=== PATIENT | female | born 1930 | race Caucasian/White ===

== ENCOUNTER 2016-12-09 08:51 | Inpatient (IN) | payer MEDICARE, OTHER ==
[2016-12-09] MEDS ORDERED: ONDANSETRON ODT 4 MG TAB.RAPDIS ONE (09:14)
[2016-12-09 09:34] LABS: BASOPHILS 0.5 % (0.0-2.0); EOSINOPHILS 2.1 % (0.0-6.0); EOSINOPHILS# 0.2 X 10^3uL (0.0-0.4); HEMATOCRIT 37.3 % (36.0-48.0); HEMOGLOBIN 11.9 g/dL (12.0-16.0); LYMPHOCYTES 20.6 % (20.0-40.0); LYMPHOCYTES# 1.6 X 10^3uL (0.8-3.8); MEAN CELL VOLUME 93.9 fL (84.0-102.0); MEAN CORPUS. HGB CONCENTRATION 31.8 g/dL (32.0-36.0); MEAN CORPUSCULAR HEMOGLOBIN 29.9 pg (29.0-35.0); MEAN PLATELET VOLUME 7.8 fL (7.4-10.4); MONOCYTES 8.4 % (2.0-10.0); MONOCYTES# 0.7 X 10^3uL (0.2-1.0); NEUTROPHILS 68.4 % (54.0-75.0); NEUTROPHILS# 5.3 X 10^3uL (2.6-6.7); PLATELET COUNT 210 X 10^3uL (130-440); RED BLOOD COUNT 3.97 X 10^6uL (4.20-6.10); WHITE BLOOD COUNT 7.8 X 10^3uL (3.9-10.7)
[2016-12-09 09:45] LABS: BLOOD UREA NITROGEN 24 mg/dL (7-17); CALCIUM 9.7 mg/dL (8.4-10.2); CHLORIDE 104 mmol/L (98-107); GLUCOSE 111 mg/dL (70-100); POTASSIUM 4.1 mmol/L (3.5-5.1); SODIUM 144 mmol/L (137-145)
[2016-12-09 10:50] LABS: URINE MUCUS NONE SEEN (Up to 25%); URINE RBC NONE SEEN (0-5/hpf)
[2016-12-09] MEDS ORDERED: HOME MEDICATION LIST NEEDED 1 EA EACH MC ONE (11:13)
[2016-12-09] MEDS ORDERED: ACETAMINOPHEN 325 MG TABLET PO PRN ×2 (11:13→13:12)
[2016-12-09 11:15] LABS: URINE COLOR YELLOW
[2016-12-09 11:16] LABS: URINE APPEARANCE CLOUDY
[2016-12-09 11:19] LABS: URINE BACTERIA >50 ORGANISMS/hpf (<10/hpf); URINE BILIRUBIN NEGATIVE (NEGATIVE); URINE BLOOD TRACE (NEGATIVE); URINE GLUCOSE NORMAL (NEGATIVE); URINE KETONE NEGATIVE (NEGATIVE); URINE LEUKOCYTE ESTERASE 500 WBC/uL (3+) (NEGATIVE); URINE NITRITE POSITIVE (NEGATIVE); URINE PROTEIN 10mg/dL (trace) (NEG - TRACE); URINE SQUAMOUS EPITHELIAL CELL 0-5/hpf (<= 15/hpf); URINE UROBILINOGEN 1mg/dL (Normal) (NEG-1mg/dL)
[2016-12-09] MEDS ORDERED: CEFTRIAXONE SODIUM 1,000 MG/10 ML VIAL ONE (11:38)
[2016-12-09] MEDS ORDERED: NORMAL SALINE 100 ML IV ONE (11:38)
[2016-12-09] MEDS ORDERED: NORMAL SALINE 1,000 ML IV SCH ×2 (12:00→14:00)
--- NOTE | 2016-12-09 12:28 | ER NURSING DOCUMENTATION ---
Nurse's Notes [facility] Name:Hanna Cole Age:86 yrs Sex:Female :1930 Arrival Date:12/09/2016 Time:08:51 Bed4 Private MD:Anabella Moctezuma Diagnosis:Urinary Tract Infection (UTI);Dehydration;Fall;Difficulty Walking Presentation: 12/09 09:00 Care prior to arrival: IV initiated. st 09:02 Notified ED Physician of [facility] [place] notified. st 09:02 Acuity: HAMIDA 3 st 09:04 Presenting complaint: Patient states: pt fell while walking to the dining room with her st walker. it was an unwitnessed fall. pt is acting at her base line. pt did complain of right hip pain but was able to put weight on it per EMS. Pt has a hx of falls and dehydration. Transition of care: [facility]. 09:04 Method Of Arrival: EMS: 410 st Triage Assessment: 09:00 General: Appears in no apparent distress, Behavior is cooperative. Pain: Denies pain. st Unable to use pain scale. pt denies pain then states that her bottom is a little sore. EENT: Oral mucosa is dry. Neuro: Moves all extremities. pt is at her base line mentation per POA. Cardiovascular: Capillary refill < 3 seconds Heart tones present. Respiratory: No deficits noted. GI: Reports nausea. Injury Description: Skin tear to the right wrist. Historical: - Allergies: Sulfa (Sulfonamide Antibiotics); - Home Meds: 1. Omeprazole Oral 2. Sotalol Oral 3. Spironolactone Oral 4. Oxybutynin Chloride Oral 5. Bupropion Oral 6. Premarin Vagl 7. Fluoxetine Oral 8. Aspirin Oral 9. azelastine nasl - PMHx: constipation; OSTEOPOROSIS; HYPERTENSION; atrial fibrillation; - PSHx: mitrial valve replacment; - Tetanus: unable to assess. - Ebola Screening: : Patient denies exposure to infectious person. Patient denies travel to an Ebola-affected area in the 21 days before illness onset. . - Immunization history: Unable to Obtain. - Social history: Smoking status: unknown if patient ever smoked tobacco. Screenin:54 Infectious Disease Risk None. Abuse screen: no reasons for suspicions noted. st Nutritional screening: No deficits noted. Vital Signs: 09:00 BP 157 / 85; Pulse 67; Resp 16; Temp 98.8; Pulse Ox 94% on 2 lpm NC; Pain 0/10; st 10:10 BP 120 / 62; Pulse 48; st 10:55 BP 137 / 58; Pulse 67; Pulse Ox 98% on 2 lpm NC; st 09:[address] ED Course: 08:53 Patient arrived in ED. ama 08:53 Anabella Moctezuma MD is Private Physician. ama 09:01 Gricelda Garrett RN is Primary Nurse. st 09:[address] 09:10 Jose Ramirez MD is Attending Physician. 09:54 Valuables Remains with patient Patient has correct armband on for positive st identification. Bed in low position. Call light in reach. Side rails up X2. Pulse Ox - RN Monitoring Only NIBP On - RN Monitoring Only. 10:44 Assisted to bedside commode. st 10:45 Urine collected. Straight cath inserted Specimen obtained. st 11:09 Anabella Moctezuma MD is Admitting Physician. declan Administered Medications: 09:47 Drug: NS 0.9% 1000 ml; Route: IV; Rate: bolus; Site: left wrist; st 11:26 Follow up: IV Status: Completed infusion; IV Intake: 1000ml st 11:35 Drug: Rocephin 1 grams; Route: IVPB; Site: left wrist; st 12:10 Follow up: IV Status: Completed infusion; IV Intake: 100ml st Intake: 11:26 IV: 1000ml; Total: 1000ml. st 12:10 IV: 100ml; Total: 1100ml. st Outcome: 11: Decision to Admit by Provider. 12:29 Patient [address] the ED. st 12:29 Admitted to Med/surg accompanied by nurse, via stretcher. st 12:29 Condition: improved 12:29 Instructed on need to admit 12:29 Report given to Wanda ELIAS st Signatures: Gricelda Garrett RN RN st Meyer, John, MD MD jm Averdick, Andrew, Reg Reg ama
--- NOTE | 2016-12-09 12:28 | ER PHYSICIAN DOCUMENTATION ---
Physician Documentation [facility] Name:Hanna Cole Age:86 yrs Sex:Female :1930 Arrival Date:12/09/2016 Time:08:51 Bed4 Private MD:Anabella Moctezuma ED PhysicianMeJose kerns Disposition: 12/09/16 11:10 Admit ordered for Anabella Moctezuma. Preliminary diagnosis are Urinary Tract Infection (UTI), Dehydration, Fall, Difficulty Walking. - Bed requested for Medical/Surgical. - Condition is Fair. - Problem is new. - Symptoms are unchanged. 23 HR OBS Yes HPI: 12/09 10:52 This 86 yrs old Female presents to ER via EMS with complaints of Fall Injury. declan 10:52 Details of fall: The patient fell from an upright position, while walking. Onset: The jm symptom(s)/episode began/occurred just prior to arrival, this morning, today. Associated injuries: The patient sustained L hip- pt walking on it w assist. . Associated signs and symptoms: Pertinent positives: weakness, Loss of consciousness: the patient experienced no loss of consciousness. Severity of symptoms: in the emergency department the symptoms are unchanged. The patient has experienced similar episodes in the past. The patient has not recently seen a physician. 86 yo F who lives at [facility] here for falls. Pt feel a week ago and did not come in, but today EMS thought she was much more weak. Her friend agrees. Pt has minimal pain on the L hip, but otherwise admits only to feeling weak. . Historical: - Allergies: Sulfa (Sulfonamide Antibiotics); - Home Meds: 1. Omeprazole Oral 2. Sotalol Oral 3. Spironolactone Oral 4. Oxybutynin Chloride Oral 5. Bupropion Oral 6. Premarin Vagl 7. Fluoxetine Oral 8. Aspirin Oral 9. azelastine nasl - PMHx: constipation; OSTEOPOROSIS; HYPERTENSION; atrial fibrillation; - PSHx: mitrial valve replacment; - Tetanus: unable to assess. - Ebola Screening: : Patient denies exposure to infectious person. Patient denies travel to an Ebola-affected area in the 21 days before illness onset. . - Immunization history: Unable to Obtain. - Social history: Smoking status: unknown if patient ever smoked tobacco. ROS: 10:53 Constitutional: Positive for fatigue. jm 10:53 Eyes: Negative for blurry vision. 10:53 ENT: Negative for injury or acute deformity. 10:53 Cardiovascular: Negative for chest pain. 10:53 Respiratory: Negative for cough, shortness of breath. 10:53 Abdomen/GI: Negative for abdominal pain, nausea, vomiting, diarrhea. 10:53 : Negative for urinary symptoms, hematuria. 10:53 MS/extremity: Positive for contusion, Negative for swelling. 10:53 Skin: Negative for rash, swelling. 10:53 Neuro: Positive for gait disturbance. 10:53 All other systems are negative. Exam: 10:55 Constitutional: The patient appears alert, awake, frail. 10:55 Head/face: Exam is negative for obvious evidence of injury or deformity. 10:55 Eyes: Periorbital structures: appear normal. 10:55 ENT: Nose: is normal, Mouth: Oral mucosa: dry. 10:55 Cardiovascular: Rate: normal, Rhythm: regular. 10:55 Respiratory: Respirations: normal, Breath sounds: are normal. 10:55 Abdomen/GI: Bowel sounds: normal, Palpation: abdomen is soft and non-tender. 10:55 : CVA tenderness, is absent, Bladder: tenderness, that is moderate. 10:55 Musculoskeletal/extremity: Extremities: mild tenderness of the L hip, ROM: intact in all extremities, Circulation is intact in all extremities. Weight bearing: can bear weight with assistance only, uses walker. 10:55 Skin: Appearance: Color: pink, Turgor: is poor. 10:55 Neuro: Mentation: is normal, Gait: is unsteady. 10:55 Psych: Behavior/mood is pleasant, cooperative, Affect is calm. Vital Signs: 09:00 BP 157 / 85; Pulse 67; Resp 16; Temp 98.8; Pulse Ox 94% on 2 lpm NC; Pain 0/10; st 10:10 BP 120 / 62; Pulse 48; st 10:55 BP 137 / 58; Pulse 67; Pulse Ox 98% on 2 lpm NC; st 09:[address] MDM: 09:10 Patient medically screened. 11:08 Differential diagnosis: fracture, UTI, dehydration. Data reviewed: vital signs, nurses notes, old medical records, lab test result(s), and as a result, I will discharge patient. Counseling: I had a detailed discussion with the patient and/or guardian regarding: the historical points, exam findings, and any diagnostic results supporting the discharge/admit diagnosis, lab results, the need for further work-up and treatment in the hospital. Medication response: The patient's symptoms have improved. Physician consultation: Anabella Moctezuma MD regarding admission, and will see patient shortly, later today. Admission orders: after a detailed discussion of the patient's condition and case, the admit orders are written by me. ED course: Pt w UTI and falls. Pt is at great risk of injury if we let her go, so admission is warranted. . 12/09 09:41 Order name: CBC AUTO DIF, MDIF/RMOR IF IND; Complete Time: 10:05 EDMS 12/09 09:47 Order name: BASIC METABOLIC PANEL; Complete Time: 10:05 EDMS 12/09 11:20 Order name: UA W/ MICRO -CULTURE IF IND; Complete Time: 11:22 EDMS Dispensed Medications: 09:47 Drug: NS 0.9% 1000 ml; Route: IV; Rate: bolus; Site: left wrist; st 11:26 Follow up: IV Status: Completed infusion; IV Intake: 1000ml st 11:35 Drug: Rocephin 1 grams; Route: IVPB; Site: left wrist; st 12:10 Follow up: IV Status: Completed infusion; IV Intake: 100ml st Signatures: Gricelda Garrett, RN Jose Beckham MD MD jm
[2016-12-09] MEDS ORDERED: POLYETHYLENE GLYCOL 3350 17 GM POWD.PACK PO PRN (12:54)
[2016-12-09] MEDS ORDERED: ONDANSETRON HCL 4 MG/2 ML VIAL IV PRN (13:08)
[2016-12-09] MEDS ORDERED: LORazepam 0.5 MG TABLET PO PRN (13:10)
[2016-12-09] MEDS ORDERED: AZELASTINE HCL NASAL PRN ×2 (13:12→13:29)
[2016-12-09] MEDS ORDERED: MAGNESIUM HYDROXIDE 30 ML UDC PO PRN (13:12)
[2016-12-09] MEDS ORDERED: MAG-AL PLUS XS SUSP 30 ML UDC PO PRN (13:12)
[2016-12-09] MEDS ORDERED: CONJUGATED ESTROGENS VG SCH (13:15)
[2016-12-09 13:23] LABS: ALBUMIN 3.9 g/dL (3.5-5.0); BILIRUBIN, DIRECT 0.4 mg/dL (0.0-0.4); BILIRUBIN, TOTAL 0.9 mg/dL (0.2-1.3); TOTAL PROTEIN 7.4 g/dL (6.3-8.2)
[2016-12-09] MEDS ORDERED: SALINE TOPICAL PRN (13:40)
[2016-12-09] MEDS ORDERED: SALINE TOPICAL SCH (15:00)
[2016-12-09] MEDS: CEFTRIAXONE SODIUM 1,000 MG/10 ML VIAL IV SCH (16:27)
--- NOTE | 2016-12-09 17:27 | HISTORY & PHYSICAL ---
DATE OF ADMISSION: 12/09/16 ADMITTING DIAGNOSES 1. Urinary tract infection, acute. 2. Frequent falls with fall today and right hip pain. 3. Failure to thrive. 4. Gait instability. HISTORY OF PRESENT ILLNESS: Patient is a 86-year-old female, who has been doing poorly in general at her assisted living facility. She fell last week, sustaining a skin tear on the elbow, and today was proceeding to the dining room with her walker when she fell onto her right side. EMS was called to assess her. They noted that she was considerably weaker than she had been last week. She was able to bear weight on her right hip. Evaluation in the emergency room did not find any fracture, but it was noted that she had urine consistent with a severe UTI. She is therefore being admitted for treatment for her UTI, gait assessment and treatment, and for consideration of group home placement as she does not seem to be doing well in her assisted living facility. PAST MEDICAL HISTORY 1. Status post mitral valve replacement. 2. Paroxysmal atrial fibrillation recently taken off of Coumadin because of frequent falling. 3. Depression. 4. Severe dry eye, dry mouth syndrome. 5. Cystocele with vaginal pessary in place. 6. Chronic lower back pain. 7. Gait instability with frequent falls. 8. GERD. 9. History of mitral regurgitation and mitral valve repair with many complications subsequently. 10. Hereditary and idiopathic peripheral neuropathy. 11. Hyperlipidemia, no longer treated with medication. 12. Chronic hypoxemia. 13. IBS with constipation. 14. Macular degeneration, dry, age related. 15. Onychomycosis of the toenails. 16. Fracture of the tibia in 1998 after a fall down stairs. 17. Osteoporosis. 18. Chronic postnasal drip and rhinitis. 19. Postmenopausal atrophic vaginitis. 20. History of intermittent urinary retention. 21. 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 22. 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 PAST SURGICAL HISTORY 1. Appendectomy. 2. Cataract surgery OU with intraocular lens implantation. 3. D&C of uterus. 4. Mitral valve replacement with a partial prosthetic synthetic valve in 2012. MEDICATIONS AT HOME Acetaminophen 650 mg every 4 hour orally or rectally as needed. Aspirin 81 mg, Ecotrin 1 daily. AYR saline nasal gel 3 times daily to each nostril with a cotton sw Azelastine NS 1 spray each nostril twice daily. Bupropion ER 100 mg twice daily. Calcium 600 mg with vitamin D 400 units 1 twice daily. Colace 100 mg twice daily. Fluoxetine 20 mg daily. Lactaid 1 with lactose containing products as needed. Maalox 10 mL up to 4 times daily orally. Milk of magnesia 30 mL daily as needed. Nutrashakes 4 ounces twice daily. Omeprazole 20 mg daily. Oxybutynin chloride 5 mg twice daily. Premarin 0.625 mg/g cream, half an applicator once weekly. Senokot 8.6 mg daily. Sotalol 80 mg, half twice daily. Spironolactone 25 mg daily. Tea tree oil to the toenails every morning. Vicks Vapor Rub to the toenails every evening. Vitamin D 400 IU in addition to previous listed. 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 [place] and has been in the [facility] in the past and with hospice care in the recent past. She was in 2008. Has no children. She is a nonsmoker, nondrinker. She has [id number] and friend that looks in on her. FAMILY HISTORY: Father at an unknown age with coronary artery disease and the patient was estranged. Mother at age 84, had a history of dementia and congestive heart failure. No siblings. REVIEW OF SYSTEMS: Very difficult to obtain from this patient with some dementia and general difficulty talking. She indicates the right buttock is a source of pain. She reports that she has urinary incontinence. She reports a poor appetite but otherwise does not report any abnormalities. PHYSICAL EXAMINATION VITAL SIGNS: In the emergency room initial blood pressure 157/85, pulse 67, respirations 16, temperature 98.8, O2 saturation 94% on 2 liters. After discharge from the emergency room blood pressure was 137/58, pulse 67. GENERAL: The patient is cachetic, is alert, appears comfortable in bed. Skin color seems somewhat yellowish. HEENT: Extraocular movements are intact. Sclera appear anicteric. Pupils are equal, round and reactive to light. Oropharynx is extremely dry and the patient is having difficulty speaking. Teeth are in very poor repair. Tongue is midline. NECK: Reveals no JVD, no bruits, no adenopathy. She has some kyphosis. She appears to have full range of motion and is nontender. LUNGS: Have decreased breath sounds but are clear bilaterally. CARDIOVASCULAR: Regular rate and rhythm with a 2/6 systolic ejection murmur noted at the midclavicular line to the apex. PMI nondisplaced. ABDOMEN: Nontender but very firm in the suprapubic bilateral lower quadrant areas. Bowel sounds are present but quiet. No masses palpated other than the fullness noted. EXTREMITIES: Calves are soft. No edema noted. There is ecchymosis above the right knee which appears older but fresh ecchymosis seems to be present on the right medial calf. Dorsalis pedis pulses are 2+. Tibialis posterior pulses are 1+. NEUROLOGIC: The patient has difficulty talking. She seems reasonably oriented to place and circumstance. Cranial nerves are grossly intact. Motor strength as far as able to test 5/5 in the upper extremities and 4+/5 in the lower extremities. Deep tendon reflexes were not elicitable. Toes were downgoing bilaterally. Gait was not tested at this time. DATA: CBC shows a mild anemia with a hemoglobin of 11.9 but normal indices and platelet count 210,000. Chemistries normal with hepatic panel and lipase pending. Urine is cloudy with a specific gravity of 1.020, trace of blood, positive for nitrates, 500 WBCs noted with greater than 50 organisms of bacteria per high power field. ASSESSMENT AND PLAN 1. Acute urinary tract infection with a history of vaginal pessary in place. These tend to be recurrent, but definitely cause the patient to weaken and be more prone to falling. 2. Frequent falls. The patient has had multiple attempts at intervention with physical therapy but will ask for a reassessment. I think the patient is at the point where she may be rest returning to a group home facility with close supervision. 3. Acute fall injury. I did not detect any difficulty with range of motion or particular tenderness in any area on the lower extremities. She has a small skin tear on the right hand dorsum which appears insignificant. The patient is reported to have been able to bear weight by EMT and we will continue to observe at this time. 4. Frontotemporal dementia. This is beginning to severely impact her general function and again I think she may well need to be admitted to group home care at this point in her life. 5. Code status. The patient has had DNR status for some time and we will continue to honor this. 6. Preventive care. She has had her flu vaccination for the season. Prevnar was given 12/12/14. Pneumovax in 2010. TDAP in 2012. Zostavax in 2011. Feel that all of her preventive care is actually up-to-date. MARIAELENA
[2016-12-09] MEDS ORDERED: OXYBUTYNIN CHLORIDE 5 MG TABLET PO SCH (21:00)
[2016-12-09] MEDS ORDERED: BUPROPION 100 MG PO SCH (21:00)
[2016-12-09] MEDS: BUPROPION 100 MG PO SCH (21:22)
[2016-12-09] MEDS: DOCUSATE SODIUM 100 MG CAPSULE PO SCH (21:22)
[2016-12-09] MEDS: SOTALOL HCL 80 MG TABLET PO SCH (21:31)
[2016-12-10] MEDS: PANTOPRAZOLE 40 MG TABLET PO SCH (06:10)
[2016-12-10] MEDS ORDERED: NON-FORMULARY MEDICATION (Omeprazole Magnesium [Prilosec Otc] 20 MG) PO SCH (06:30)
[2016-12-10 06:36] LABS: BASOPHILS 0.6 % (0.0-2.0); EOSINOPHILS 3.8 % (0.0-6.0); EOSINOPHILS# 0.2 X 10^3uL (0.0-0.4); HEMATOCRIT 30.9 % (36.0-48.0); HEMOGLOBIN 9.4 g/dL (12.0-16.0); LYMPHOCYTES 18.6 % (20.0-40.0); LYMPHOCYTES# 1.2 X 10^3uL (0.8-3.8); MEAN CELL VOLUME 94.8 fL (84.0-102.0); MEAN CORPUS. HGB CONCENTRATION 30.5 g/dL (32.0-36.0); MEAN CORPUSCULAR HEMOGLOBIN 28.9 pg (29.0-35.0); MEAN PLATELET VOLUME 7.5 fL (7.4-10.4); MONOCYTES 9.5 % (2.0-10.0); MONOCYTES# 0.6 X 10^3uL (0.2-1.0); NEUTROPHILS 67.5 % (54.0-75.0); NEUTROPHILS# 4.5 X 10^3uL (2.6-6.7); PLATELET COUNT 169 X 10^3uL (130-440); RED BLOOD COUNT 3.26 X 10^6uL (4.20-6.10); RED CELL DISTRIBUTION WIDTH 14.1 % (11.5-14.5); WHITE BLOOD COUNT 6.5 X 10^3uL (3.9-10.7)
[2016-12-10 06:39] LABS: BLOOD UREA NITROGEN 13 mg/dL (7-17); CALCIUM 7.9 mg/dL (8.4-10.2); CHLORIDE 105 mmol/L (98-107); CREATININE 0.8 mg/dL (0.5-1.0); GLUCOSE 92 mg/dL (70-100); POTASSIUM 4.1 mmol/L (3.5-5.1); SODIUM 141 mmol/L (137-145)
--- NOTE | 2016-12-10 07:43 | PROGRESS NOTE: IM APSO ---
Assessment and Plan - Date of Encounter Date of Encounter: 12/10/16 (1) Urinary tract infection Status: Acute Assessment and plan: Awaiting microbiology results. At this time being treated with broad spectrum Rocephin. Gram negative bacteria, probably E. Coli. Marked urinary retention noted, mattson catheter placed. Current Visit: Yes (2) Frontotemporal dementia Status: Chronic Assessment and plan: No behavioral issues overnight, she seems calm and content this morning. Current Visit: No (3) Dysphagia Status: Chronic Assessment and plan: Severe dry mouth seems to be her main issue. I have already reduced her Oxybutynin, but will discontinue it to see if that helps, as she currently has a mattson catheter in place. Current Visit: No (4) Ataxia Status: Chronic Assessment and plan: Awaiting physical therapy assessment. Physical therapy assessment showed need for therapy, which has been started. Consider transitional care unit if patient cooperates with therapy. I spoke with the POA today, and he was adamant that the patient should return to [facility]. They are very interested in having the patient return, also. Possible return on Tuesday, unless the patient does need ongoing therapies as a transitional care rehabilitation patient. Current Visit: No (5) Anemia Status: Acute Assessment and plan: The patient does not have any evident GI bleeding at this time, and does have some ecchymosis of the inner left leg after her fall. Repeat H and H at noon, and monitor stools for blood. Stool was negative for blood, rectal with stool card performed by MD. Repeat H& H at noon showed stability/improvement. I suspect the patient has lost some blood into the ecchymotic areas in the leg. Will start low dose iron supplementation. Current Visit: Yes (6) Hypotension Status: Acute Assessment and plan: Patient's blood pressure tends to run in the 90s systolic at home, which she tolerates well. However, she has been having blood pressure lowering to the 81 range, so Spironolactone has been held, and I will reduce the Sotalol to 40mg bid. The latter is given for atrial fibrillation control, however, and not for blood pressure control, so needs to be continued. Current Visit: Yes - Time Spent With Patient Total time spent with greater than 50% in coordination of care (as documented) at patient's floor/unit and/or counseling patient: 25 - 35 minutes Estimated anticipated discharge: Tuesday, or transition to rehab IM: PN Subjective Interval history: Some hypotension overnight, Sotalol was held. Patient noted to have a considerable decrease in her hematocrit this am, although only receiving fluids at 100ml/hour. Patient denies any problems this morning, except with swallowing her pills. General: fatigue HEENT: other (dry mouth) IM: PN Objective Exam - I&O/Vital Signs I&O: Intake & Output 12/09/16 12/10/16 12/10/16 21:59 05:59 13:59 Intake Total 584 1200 Output Total 800 650 Balance -216 550 Weight 43.545 kg Intake: IV 344 1200 Left Forearm 344 1200 Oral 240 Output: Urine 800 650 Other: Urine Appearance Cloudy Clear Urine Color Light Fatoumata Yellow Stool Size Copious Stool Characteristics Formed Voiding Method Indwelling Catheter Indwelling Catheter # Bowel Movements 1 Vital Signs: Last Vital Signs Temp 36.7 C 12/10/16 06:32 Pulse 61 12/10/16 06:32 Resp 20 12/10/16 06:32 BP 107/56 12/10/16 06:32 Pulse Ox 92 12/10/16 06:32 Oxygen Flow Rate 0.5 Oxygen Delivery Method Nasal Cannula - Constitutional General appearance: Present: thin - Head Head exam: Present: normal inspection - Eye Eye exam: Present: EOMI. Absent: conjunctival injection Pupils: Present: PERRL - ENT ENT exam: Present: mucous membranes dry - Neck Neck exam: Present: full ROM - Respiratory Respiratory exam: Present: clear - Cardiovascular Cardiovascular exam: Present: RRR - GI/Abdominal GI/Abdominal exam: Present: diminished bowel sounds, soft. Absent: tenderness - Extremities Exam Extremities exam: Present: normal inspection, other (ecchymosis inner left leg) . Absent: calf tenderness, edema, tenderness - Lab Labs: Laboratory Last Values WBC 6.5 X 10^3uL (3.9-10.7) 12/10/16 05:45 RBC 3.26 X 10^6uL (4.20-6.10) L 12/10/16 05:45 Hgb 9.4 g/dL (12.0-16.0) L 12/10/16 05:45 Hct 30.9 % (36.0-48.0) L 12/10/16 05:45 MCV 94.8 fL (84.0-102.0) 12/10/16 05:45 MCH 28.9 pg (29.0-35.0) L 12/10/16 05:45 MCHC 30.5 g/dL (32.0-36.0) L 12/10/16 05:45 RDW 14.1 % (11.5-14.5) 12/10/16 05:45 Plt Count 169 X 10^3uL (130-440) 12/10/16 05:45 MPV 7.5 fL (7.4-10.4) 12/10/16 05:45 Neutrophils % 67.5 % (54.0-75.0) 12/10/16 05:45 Lymphocytes % 18.6 % (20.0-40.0) L 12/10/16 05:45 Eosinophils % 3.8 % (0.0-6.0) 12/10/16 05:45 Basophils % 0.6 % (0.0-2.0) 12/10/16 05:45 Neutrophils # 4.5 X 10^3uL (2.6-6.7) 12/10/16 05:45 Lymphocytes # 1.2 X 10^3uL (0.8-3.8) 12/10/16 05:45 Monocytes 9.5 % (2.0-10.0) 12/10/16 05:45 Monocytes # 0.6 X 10^3uL (0.2-1.0) 12/10/16 05:45 Eosinophils # 0.2 X 10^3uL (0.0-0.4) 12/10/16 05:45 Basophils # 0.0 X 10^3uL (0.0-0.1) 12/10/16 05:45 Sodium 141 mmol/L (137-145) 12/10/16 05:45 Potassium 4.1 mmol/L (3.5-5.1) 12/10/16 05:45 Chloride 105 mmol/L (98-107) 12/10/16 05:45 Carbon Dioxide 30 mmol/L (22-30) 12/10/16 05:45 BUN 13 mg/dL (7-17) 12/10/16 05:45 Creatinine 0.8 mg/dL (0.5-1.0) 12/10/16 05:45 GFR Calculation Not Reportable 12/10/16 05:45 Glucose 92 mg/dL (70-100) 12/10/16 05:45 Calcium 7.9 mg/dL (8.4-10.2) L 12/10/16 05:45 Total Bilirubin 0.9 mg/dL (0.2-1.3) 12/09/16 08:40 Direct Bilirubin 0.4 mg/dL (0.0-0.4) 12/09/16 08:40 AST 25 U/L (14-36) 12/09/16 08:40 ALT 30 U/L (9-52) 12/09/16 08:40 Alkaline Phosphatase 58 U/L (38-126) 12/09/16 08:40 Total Protein 7.4 g/dL (6.3-8.2) 12/09/16 08:40 Albumin 3.9 g/dL (3.5-5.0) 12/09/16 08:40 Lipase 140 U/L (23-300) 12/09/16 08:40 Urine Color Yellow 12/09/16 10:45 Urine Appearance Cloudy A 12/09/16 10:45 Urine pH 7.0 (5-7) 12/09/16 10:45 Ur Specific [place] 1.020 (0.001-1.035) 12/09/16 10:45 Urine Protein 10mg/dl (trace) (NEG - TRACE) 12/09/16 10:45 Urine Ketones Negative (NEGATIVE) 12/09/16 10:45 Urine Blood Trace (NEGATIVE) A 12/09/16 10:45 Urine Nitrate Positive (NEGATIVE) A 12/09/16 10:45 Urine Bilirubin Negative (NEGATIVE) 12/09/16 10:45 Urine Urobilinogen 1mg/dl (normal) (NEG-1mg/dL) 12/09/16 10:45 Ur Leukocyte Esterase 500 wbc/ul (3+) (NEGATIVE) A 12/09/16 10:45 Urine RBC None seen (0-5/hpf) 12/09/16 10:45 Urine WBC 25-50/hpf (0-4/hpf) A 12/09/16 10:45 Ur Squamous Epith Cells 0-5/hpf (<= 15/hpf) 12/09/16 10:45 Urine Bacteria >50 organisms/hpf (<10/hpf) A 12/09/16 10:45 Urine Mucus None seen (Up to 25%) 12/09/16 10:45 Urine Glucose Normal (NEGATIVE) 12/09/16 10:45 Quality Questions - VTE Prophylaxis Assessment VTE Present on Admission?: No Patient at risk for venous thromboembolism?: Yes VTE Risk Level: Moderate Risk VTE Medical Contraindication: Medical contraindication (recent trauma, tendency to fall, using asprin and SCDs.) (1) Urinary tract infection Qualifiers: Urinary tract infection type: acute cystitis Hematuria presence: without hematuria Qualified Code(s): N30.00 - Acute cystitis without hematuria (3) Dysphagia Qualifiers: Dysphagia type: oropharyngeal phase Qualified Code(s): R13.12 - Dysphagia, oropharyngeal phase (5) Anemia Qualifiers: Anemia type: unspecified type Qualified Code(s): D64.9 - Anemia, unspecified (6) Hypotension Qualifiers: Hypotension type: idiopathic hypotension Qualified Code(s): I95.0 - Idiopathic hypotension
[2016-12-10] MEDS ORDERED: SPIRONOLACTONE 25 MG TABLET PO SCH (09:00)
[2016-12-10] MEDS ORDERED: SOTALOL HCL 80 MG TABLET PO SCH (09:00)
[2016-12-10] MEDS: FLUOXETINE HCL 20 MG CAPSULE PO SCH (09:11)
[2016-12-10] MEDS: BUPROPION 100 MG PO SCH ×2 (09:11→20:22)
[2016-12-10] MEDS: DOCUSATE SODIUM 100 MG CAPSULE PO SCH ×2 (09:11→20:22)
[2016-12-10] MEDS: SENNOSIDES 8.6 MG TABLET PO SCH (09:12)
[2016-12-10] MEDS: SOTALOL HCL 80 MG TABLET PO SCH ×2 (09:12→20:22)
[2016-12-10] MEDS: POLYETHYLENE GLYCOL 3350 17 GM POWD.PACK PO SCH (09:12)
[2016-12-10] MEDS: CHOLECALCIFEROL 400 UNIT TABLET PO SCH (09:13)
[2016-12-10 13:04] LABS: HEMATOCRIT 30.3 % (36.0-48.0); HEMOGLOBIN 10.2 g/dL (12.0-16.0)
[2016-12-10] MEDS: CEFTRIAXONE SODIUM 1,000 MG/10 ML VIAL IV SCH (13:15)
[2016-12-10] MEDS: CEFTRIAXONE SODIUM 1,000 MG in NORMAL SALINE MINI-BAG+ 100 ML IV SCH (14:50)
[2016-12-10] MEDS: NORMAL SALINE 1,000 ML IV SCH (17:58)
[2016-12-11] MEDS: NORMAL SALINE 1,000 ML IV SCH (00:06)
[2016-12-11 12:24] LABS: BLOOD UREA NITROGEN 8 mg/dL (7-17); CALCIUM 8.2 mg/dL (8.4-10.2); CHLORIDE 105 mmol/L (98-107); CREATININE 0.7 mg/dL (0.5-1.0); GLUCOSE 104 mg/dL (70-100); POTASSIUM 4.1 mmol/L (3.5-5.1); SODIUM 142 mmol/L (137-145)
[2016-12-11 12:30] LABS: BASOPHILS 0.2 % (0.0-2.0); EOSINOPHILS 1.9 % (0.0-6.0); EOSINOPHILS# 0.2 X 10^3uL (0.0-0.4); HEMATOCRIT 35.1 % (36.0-48.0); HEMOGLOBIN 11.6 g/dL (12.0-16.0); LYMPHOCYTES 11.2 % (20.0-40.0); MEAN CELL VOLUME 94.6 fL (84.0-102.0); MEAN CORPUS. HGB CONCENTRATION 33.1 g/dL (32.0-36.0); MEAN CORPUSCULAR HEMOGLOBIN 31.3 pg (29.0-35.0); MEAN PLATELET VOLUME 7.7 fL (7.4-10.4); MONOCYTES 8.6 % (2.0-10.0); MONOCYTES# 0.7 X 10^3uL (0.2-1.0); NEUTROPHILS 78.1 % (54.0-75.0); NEUTROPHILS# 6.7 X 10^3uL (2.6-6.7); PLATELET COUNT 183 X 10^3uL (130-440); RED BLOOD COUNT 3.71 X 10^6uL (4.20-6.10); RED CELL DISTRIBUTION WIDTH 14.2 % (11.5-14.5); WHITE BLOOD COUNT 8.6 X 10^3uL (3.9-10.7)
[2016-12-11] MEDS: CHOLECALCIFEROL 400 UNIT TABLET PO SCH (12:42)
[2016-12-11] MEDS: POLYETHYLENE GLYCOL 3350 17 GM POWD.PACK PO SCH (12:42)
[2016-12-11] MEDS: FLUOXETINE HCL 20 MG CAPSULE PO SCH (12:42)
[2016-12-11] MEDS: DOCUSATE SODIUM 100 MG CAPSULE PO SCH ×2 (12:42→21:31)
[2016-12-11] MEDS: BUPROPION 100 MG PO SCH ×2 (12:42→21:30)
[2016-12-11] MEDS: SENNOSIDES 8.6 MG TABLET PO SCH (12:42)
[2016-12-11] MEDS: PANTOPRAZOLE 40 MG TABLET PO SCH (12:42)
[2016-12-11] MEDS: SOTALOL HCL 80 MG TABLET PO SCH ×2 (12:43→21:31)
[2016-12-11] MEDS: CEFTRIAXONE SODIUM 1,000 MG in NORMAL SALINE MINI-BAG+ 100 ML IV SCH (12:54)
--- NOTE | 2016-12-11 14:51 | PROGRESS NOTE: IM APSO ---
Assessment and Plan - Date of Encounter Date of Encounter: 12/11/16 (1) Anemia Status: Acute Assessment and plan: Likely due to excessive bruising from her fall. Hct is increasing now, recheck in the am. Current Visit: Yes (2) Urinary tract infection Status: Acute Assessment and plan: E. coli sensitive to rocephin. Has clinically improved with normal WBC's. Will transition to oral keflex and remove mattson. Current Visit: Yes (3) Hypoxemia Status: Acute Assessment and plan: Still with minimal supplementation. Etiology unclear at present. Current Visit: Yes (4) Ataxia Status: Chronic Assessment and plan: Participated well with PT today. Will cont to ambulate with assistance. PT not available again until Tuesday. Current Visit: Yes (5) Dysphagia Status: Chronic Assessment and plan: Has not complained about this today. Was possibly due to dry mouth. Current Visit: Yes (6) Frontotemporal dementia Status: Chronic Assessment and plan: Stable. Current Visit: Yes - Time Spent With Patient Total time spent with greater than 50% in coordination of care (as documented) at patient's floor/unit and/or counseling patient: Greater than 35 minutes Estimated anticipated discharge: Tuesday, or transition to rehab IM: PN Subjective General: fatigue, confusion Respiratory: no SOB Gastrointestinal: no nausea Genitourinary: no dysuria (mattson in place) Musculoskeletal: weakness Integumentary: no wound Neurological: limb weakness IM: PN Objective Exam - I&O/Vital Signs Vital Signs: Last Vital Signs Temp 36.4 C L 12/10/16 23:00 Pulse 62 12/10/16 23:00 Resp 16 12/10/16 23:00 BP 116/53 12/10/16 23:00 Pulse Ox 96 12/10/16 23:00 Oxygen Flow Rate 0.5 Oxygen Delivery Method Nasal Cannula - Constitutional General appearance: Present: thin - Head Head exam: Present: normal inspection - Eye Eye exam: Present: EOMI. Absent: conjunctival injection Pupils: Present: PERRL - Neck Neck exam: Present: full ROM, normal inspection - Respiratory Respiratory exam: Absent: respiratory distress - GI/Abdominal GI/Abdominal exam: Absent: tenderness - Rectal Rectal exam: Present: deferred - Lab Labs: Laboratory Last Values WBC 8.6 X 10^3uL (3.9-10.7) 12/11/16 06:05 RBC 3.71 X 10^6uL (4.20-6.10) L 12/11/16 06:05 Hgb 11.6 g/dL (12.0-16.0) L 12/11/16 06:05 Hct 35.1 % (36.0-48.0) L 12/11/16 06:05 MCV 94.6 fL (84.0-102.0) 12/11/16 06:05 MCH 31.3 pg (29.0-35.0) 12/11/16 06:05 MCHC 33.1 g/dL (32.0-36.0) 12/11/16 06:05 RDW 14.2 % (11.5-14.5) 12/11/16 06:05 Plt Count 183 X 10^3uL (130-440) 12/11/16 06:05 MPV 7.7 fL (7.4-10.4) 12/11/16 06:05 Neutrophils % 78.1 % (54.0-75.0) H 12/11/16 06:05 Lymphocytes % 11.2 % (20.0-40.0) L 12/11/16 06:05 Eosinophils % 1.9 % (0.0-6.0) 12/11/16 06:05 Basophils % 0.2 % (0.0-2.0) 12/11/16 06:05 Neutrophils # 6.7 X 10^3uL (2.6-6.7) 12/11/16 06:05 Lymphocytes # 1.0 X 10^3uL (0.8-3.8) 12/11/16 06:05 Monocytes 8.6 % (2.0-10.0) 12/11/16 06:05 Monocytes # 0.7 X 10^3uL (0.2-1.0) 12/11/16 06:05 Eosinophils # 0.2 X 10^3uL (0.0-0.4) 12/11/16 06:05 Basophils # 0.0 X 10^3uL (0.0-0.1) 12/11/16 06:05 Sodium 142 mmol/L (137-145) 12/11/16 06:05 Potassium 4.1 mmol/L (3.5-5.1) 12/11/16 06:05 Chloride 105 mmol/L (98-107) 12/11/16 06:05 Carbon Dioxide 30 mmol/L (22-30) 12/11/16 06:05 BUN 8 mg/dL (7-17) 12/11/16 06:05 Creatinine 0.7 mg/dL (0.5-1.0) 12/11/16 06:05 GFR Calculation Not Reportable 12/11/16 06:05 Glucose 104 mg/dL (70-100) H 12/11/16 06:05 Calcium 8.2 mg/dL (8.4-10.2) L 12/11/16 06:05 Total Bilirubin 0.9 mg/dL (0.2-1.3) 12/09/16 08:40 Direct Bilirubin 0.4 mg/dL (0.0-0.4) 12/09/16 08:40 AST 25 U/L (14-36) 12/09/16 08:40 ALT 30 U/L (9-52) 12/09/16 08:40 Alkaline Phosphatase 58 U/L (38-126) 12/09/16 08:40 Total Protein 7.4 g/dL (6.3-8.2) 12/09/16 08:40 Albumin 3.9 g/dL (3.5-5.0) 12/09/16 08:40 Lipase 140 U/L (23-300) 12/09/16 08:40 Urine Color Yellow 12/09/16 10:45 Urine Appearance Cloudy A 12/09/16 10:45 Urine pH 7.0 (5-7) 12/09/16 10:45 Ur Specific [place] 1.020 (0.001-1.035) 12/09/16 10:45 Urine Protein 10mg/dl (trace) (NEG - TRACE) 12/09/16 10:45 Urine Ketones Negative (NEGATIVE) 12/09/16 10:45 Urine Blood Trace (NEGATIVE) A 12/09/16 10:45 Urine Nitrate Positive (NEGATIVE) A 12/09/16 10:45 Urine Bilirubin Negative (NEGATIVE) 12/09/16 10:45 Urine Urobilinogen 1mg/dl (normal) (NEG-1mg/dL) 12/09/16 10:45 Ur Leukocyte Esterase 500 wbc/ul (3+) (NEGATIVE) A 12/09/16 10:45 Urine RBC None seen (0-5/hpf) 12/09/16 10:45 Urine WBC 25-50/hpf (0-4/hpf) A 12/09/16 10:45 Ur Squamous Epith Cells 0-5/hpf (<= 15/hpf) 12/09/16 10:45 Urine Bacteria >50 organisms/hpf (<10/hpf) A 12/09/16 10:45 Urine Mucus None seen (Up to 25%) 12/09/16 10:45 Urine Glucose Normal (NEGATIVE) 12/09/16 10:45 (1) Anemia Qualifiers: Anemia type: unspecified type Qualified Code(s): D64.9 - Anemia, unspecified (2) Urinary tract infection Qualifiers: Urinary tract infection type: acute cystitis Hematuria presence: without hematuria Qualified Code(s): N30.00 - Acute cystitis without hematuria (5) Dysphagia Qualifiers: Dysphagia type: oropharyngeal phase Qualified Code(s): R13.12 - Dysphagia, oropharyngeal phase
[2016-12-11] MEDS: CEPHALEXIN MONOHYDRATE 250 MG CAPSULE PO SCH ×2 (16:24→21:29)
[2016-12-11] MEDS ORDERED: CEPHALEXIN MONOHYDRATE 250 MG CAPSULE PO ONE (16:33)
[2016-12-12] MEDS: PANTOPRAZOLE 40 MG TABLET PO SCH (06:00)
[2016-12-12 06:35] LABS: BASOPHILS 0.5 % (0.0-2.0); EOSINOPHILS 1.5 % (0.0-6.0); EOSINOPHILS# 0.1 X 10^3uL (0.0-0.4); HEMATOCRIT 34.3 % (36.0-48.0); HEMOGLOBIN 11.1 g/dL (12.0-16.0); LYMPHOCYTES 12.8 % (20.0-40.0); LYMPHOCYTES# 1.1 X 10^3uL (0.8-3.8); MEAN CELL VOLUME 93.6 fL (84.0-102.0); MEAN CORPUS. HGB CONCENTRATION 32.5 g/dL (32.0-36.0); MEAN CORPUSCULAR HEMOGLOBIN 30.4 pg (29.0-35.0); MEAN PLATELET VOLUME 7.4 fL (7.4-10.4); MONOCYTES 10.8 % (2.0-10.0); MONOCYTES# 0.9 X 10^3uL (0.2-1.0); NEUTROPHILS 74.4 % (54.0-75.0); NEUTROPHILS# 6.4 X 10^3uL (2.6-6.7); PLATELET COUNT 176 X 10^3uL (130-440); RED BLOOD COUNT 3.67 X 10^6uL (4.20-6.10); RED CELL DISTRIBUTION WIDTH 13.8 % (11.5-14.5); WHITE BLOOD COUNT 8.5 X 10^3uL (3.9-10.7)
[2016-12-12 06:53] LABS: BLOOD UREA NITROGEN 10 mg/dL (7-17); CALCIUM 8.3 mg/dL (8.4-10.2); CHLORIDE 102 mmol/L (98-107); CREATININE 0.7 mg/dL (0.5-1.0); GLUCOSE 113 mg/dL (70-100); POTASSIUM 3.6 mmol/L (3.5-5.1); SODIUM 140 mmol/L (137-145)
[2016-12-12] MEDS: FLUOXETINE HCL 20 MG CAPSULE PO SCH (09:08)
[2016-12-12] MEDS: CEPHALEXIN MONOHYDRATE 250 MG CAPSULE PO SCH ×3 (09:08→21:04)
[2016-12-12] MEDS: POLYETHYLENE GLYCOL 3350 17 GM POWD.PACK PO SCH (09:09)
[2016-12-12] MEDS: SENNOSIDES 8.6 MG TABLET PO SCH (09:09)
[2016-12-12] MEDS: CHOLECALCIFEROL 400 UNIT TABLET PO SCH (09:09)
[2016-12-12] MEDS: DOCUSATE SODIUM 100 MG CAPSULE PO SCH ×2 (09:09→20:39)
[2016-12-12] MEDS: BUPROPION 100 MG PO SCH ×2 (09:10→20:39)
[2016-12-12] MEDS: SOTALOL HCL 80 MG TABLET PO SCH ×2 (09:11→20:38)
--- NOTE | 2016-12-12 12:47 | PROGRESS NOTE: IM APSO ---
Assessment and Plan - Date of Encounter Date of Encounter: 12/12/16 (1) Anemia Status: Acute Assessment and plan: Stable, asymptomatic, cont to follow. Current Visit: Yes (2) Urinary tract infection Status: Acute Assessment and plan: Remains afebrile, vss. Cont with po antibiotic. Current Visit: Yes (3) Hypoxemia Status: Acute Assessment and plan: Cont to have minimal O2 supplement. Current Visit: Yes (4) Ataxia Status: Chronic Assessment and plan: Will benefit from additional PT. Anticipate f/u eval and treat tomorrow. Current Visit: Yes (5) Dysphagia Status: Chronic Assessment and plan: No complaints today. Current Visit: Yes (6) Frontotemporal dementia Status: Chronic Assessment and plan: Stable. Current Visit: Yes (7) Incontinence Status: Acute Assessment and plan: Oxybutinin had been stopped due to dry mouth and possibly other issues. With almost total incontinence, will try back on med to see if that helps. Current Visit: Yes - Time Spent With Patient Total time spent with greater than 50% in coordination of care (as documented) at patient's floor/unit and/or counseling patient: Greater than 35 minutes Estimated anticipated discharge: Tuesday, or transition to rehab IM: PN Subjective General: fatigue, confusion Respiratory: no SOB Gastrointestinal: no nausea Genitourinary: incontinence (Since mattson has been out.), no dysuria (mattson in place) Musculoskeletal: weakness Integumentary: no wound Neurological: limb weakness IM: PN Objective Exam - I&O/Vital Signs I&O: Intake & Output 12/11/16 12/12/16 12/12/16 21:59 05:59 13:59 Intake Total 1160 168 480 Output Total 1000 Balance 160 168 480 Intake: IV 700 Left Forearm 700 Oral 460 168 480 Output: Urine 1000 Other: Urine Appearance Clear Urine Color Yellow Voiding Method Diaper Incontinent Incontinent # Voids 3 Vital Signs: Last Vital Signs Temp 37.2 C 12/12/16 11:00 Pulse 70 12/12/16 11:00 Resp 16 12/12/16 11:00 BP 115/52 12/12/16 11:00 Pulse Ox 98 12/12/16 11:00 Oxygen Flow Rate 0.5 Oxygen Delivery Method Nasal Cannula - Constitutional General appearance: Present: thin. Absent: acute distress - Head Head exam: Present: normal inspection - Eye Eye exam: Present: EOMI. Absent: conjunctival injection Pupils: Present: PERRL - ENT ENT exam: Present: mucous membranes dry - Neck Neck exam: Present: full ROM, normal inspection - Respiratory Respiratory exam: Absent: respiratory distress - GI/Abdominal GI/Abdominal exam: Absent: tenderness - Rectal Rectal exam: Present: deferred - Extremities Exam Extremities exam: Present: normal inspection, tenderness, other (ecchymosis inner left leg). Absent: edema - Neurological Exam Neurological exam: Present: alert. Absent: oriented X3 - Psychiatric Psychiatric exam: Present: agitated (upset with her lunch she did not like.) - Allied Health Notes Allied health notes reviewed: nursing - Lab Labs: Laboratory Last Values WBC 8.5 X 10^3uL (3.9-10.7) 12/12/16 06:15 RBC 3.67 X 10^6uL (4.20-6.10) L 12/12/16 06:15 Hgb 11.1 g/dL (12.0-16.0) L 12/12/16 06:15 Hct 34.3 % (36.0-48.0) L 12/12/16 06:15 MCV 93.6 fL (84.0-102.0) 12/12/16 06:15 MCH 30.4 pg (29.0-35.0) 12/12/16 06:15 MCHC 32.5 g/dL (32.0-36.0) 12/12/16 06:15 RDW 13.8 % (11.5-14.5) 12/12/16 06:15 Plt Count 176 X 10^3uL (130-440) 12/12/16 06:15 MPV 7.4 fL (7.4-10.4) 12/12/16 06:15 Neutrophils % 74.4 % (54.0-75.0) 12/12/16 06:15 Lymphocytes % 12.8 % (20.0-40.0) L 12/12/16 06:15 Eosinophils % 1.5 % (0.0-6.0) 12/12/16 06:15 Basophils % 0.5 % (0.0-2.0) 12/12/16 06:15 Neutrophils # 6.4 X 10^3uL (2.6-6.7) 12/12/16 06:15 Lymphocytes # 1.1 X 10^3uL (0.8-3.8) 12/12/16 06:15 Monocytes 10.8 % (2.0-10.0) H 12/12/16 06:15 Monocytes # 0.9 X 10^3uL (0.2-1.0) 12/12/16 06:15 Eosinophils # 0.1 X 10^3uL (0.0-0.4) 12/12/16 06:15 Basophils # 0.0 X 10^3uL (0.0-0.1) 12/12/16 06:15 Sodium 140 mmol/L (137-145) 12/12/16 06:15 Potassium 3.6 mmol/L (3.5-5.1) 12/12/16 06:15 Chloride 102 mmol/L (98-107) 12/12/16 06:15 Carbon Dioxide 30 mmol/L (22-30) 12/12/16 06:15 BUN 10 mg/dL (7-17) 12/12/16 06:15 Creatinine 0.7 mg/dL (0.5-1.0) 12/12/16 06:15 GFR Calculation Not Reportable 12/12/16 06:15 Glucose 113 mg/dL (70-100) H 12/12/16 06:15 Calcium 8.3 mg/dL (8.4-10.2) L 12/12/16 06:15 Total Bilirubin 0.9 mg/dL (0.2-1.3) 12/09/16 08:40 Direct Bilirubin 0.4 mg/dL (0.0-0.4) 12/09/16 08:40 AST 25 U/L (14-36) 12/09/16 08:40 ALT 30 U/L (9-52) 12/09/16 08:40 Alkaline Phosphatase 58 U/L (38-126) 12/09/16 08:40 Total Protein 7.4 g/dL (6.3-8.2) 12/09/16 08:40 Albumin 3.9 g/dL (3.5-5.0) 12/09/16 08:40 Lipase 140 U/L (23-300) 12/09/16 08:40 Urine Color Yellow 12/09/16 10:45 Urine Appearance Cloudy A 12/09/16 10:45 Urine pH 7.0 (5-7) 12/09/16 10:45 Ur Specific [place] 1.020 (0.001-1.035) 12/09/16 10:45 Urine Protein 10mg/dl (trace) (NEG - TRACE) 12/09/16 10:45 Urine Ketones Negative (NEGATIVE) 12/09/16 10:45 Urine Blood Trace (NEGATIVE) A 12/09/16 10:45 Urine Nitrate Positive (NEGATIVE) A 12/09/16 10:45 Urine Bilirubin Negative (NEGATIVE) 12/09/16 10:45 Urine Urobilinogen 1mg/dl (normal) (NEG-1mg/dL) 12/09/16 10:45 Ur Leukocyte Esterase 500 wbc/ul (3+) (NEGATIVE) A 12/09/16 10:45 Urine RBC None seen (0-5/hpf) 12/09/16 10:45 Urine WBC 25-50/hpf (0-4/hpf) A 12/09/16 10:45 Ur Squamous Epith Cells 0-5/hpf (<= 15/hpf) 12/09/16 10:45 Urine Bacteria >50 organisms/hpf (<10/hpf) A 12/09/16 10:45 Urine Mucus None seen (Up to 25%) 12/09/16 10:45 Urine Glucose Normal (NEGATIVE) 12/09/16 10:45 (1) Anemia Qualifiers: Anemia type: unspecified type Qualified Code(s): D64.9 - Anemia, unspecified (2) Urinary tract infection Qualifiers: Urinary tract infection type: acute cystitis Hematuria presence: without hematuria Qualified Code(s): N30.00 - Acute cystitis without hematuria (5) Dysphagia Qualifiers: Dysphagia type: oropharyngeal phase Qualified Code(s): R13.12 - Dysphagia, oropharyngeal phase
[2016-12-12] MEDS: OXYBUTYNIN CHLORIDE 5 MG TABLET PO SCH ×2 (14:34→20:39)
[2016-12-12] MEDS ORDERED: BISACODYL 10 MG SUPP.RECT RECTAL PRN (18:23)
[2016-12-13] MEDS: PANTOPRAZOLE 40 MG TABLET PO SCH (05:56)
--- NOTE | 2016-12-13 07:54 | DC SUMMARY: IM Note ---
Discharge Summary: IM/Peds Provider: Date of Admission: 12/09/16 Admitting Provider: REDDY CELAYA MD Attending Provider: REDDY CELAYA MD Discharging Provider: REDDY CELAYA MD Primary Care Provider: Discharge Date: 12/13/16 - Diagnosis (1) Urinary tract infection Status: Acute Qualifiers: Urinary tract infection type: acute cystitis Hematuria presence: without hematuria Qualified Code(s): N30.00 - Acute cystitis without hematuria (2) Frontotemporal dementia Status: Chronic (3) Dysphagia Status: Chronic Qualifiers: Dysphagia type: oropharyngeal phase Qualified Code(s): R13.12 - Dysphagia, oropharyngeal phase (4) Ataxia Status: Chronic (5) Anemia Status: Acute Qualifiers: Anemia type: unspecified type Qualified Code(s): D64.9 - Anemia, unspecified (6) Hypotension Status: Acute Qualifiers: Hypotension type: idiopathic hypotension Qualified Code(s): I95.0 - Idiopathic hypotension Hospital Course: Patient was admitted after a fall and when she was found to have a UTI in the ER. She was initially treated with Rocephin, and culture returned with E.Coli , fluoroquinolone resistant. She was switched to oral Cephalexin, and will complete the course. Additional issues were a mild anemia, which improved, and was felt to be acute due to a large amount of hematoma in the right leg and buttock. Physical therapy was initiated from her admission, but she has not improved much during her stay, and will need further treatment to return to baseline. Hypotension was also noted, and medications had to be reduced, with the cessation of spironolactone. Discharge issues: incontinence of bladder and bowel (not new.) inability to transfer supine to sit or stand without a two person assist inability to ambulate the 200 feet with her walker that is needed for her to walk to the dining room at her [facility] , with anxiety and confusion at times. Plan is for patient to enter transitional care status, in the hope of returning to her LONGTERM, which is the preference of the patient and her POA. Lino Carotan expresses willingness to accept the patient back to LONGTERM status once ready. Time spent discussing smoking cessation with patient: more than 10 minutes - Time Spent with Patient Total time spent providing and/or coordinating discharge services: Time with patient DS: Greater than 30 minutes Discharge - Patient/Caregiver Discharge Instructions Activity Level: Continue PT/OT efforts to improve transfer and ambulation Diet: Regular, mechanical soft Follow up: REDDY CELAYA MD [Primary Care Provider] - Overall discharge status: patient is progressing back to baseline Home Medications: Potassium Chloride ER [Micro-K 10 Meq*] 1 tab PO DAILY #30 tab Disposition: [facility] SWING BED 1. Medical reason for no anticoagulation order on D/C?: Medical contraindication Discharge Summary Data - Medication History Medication History: Home Medications Azelastine HCl 1 spray NS BID PRN 11/03/14 Docusate Sodium [Colace*] 100 mg PO BID 11/03/14 Omeprazole Magnesium [Prilosec Otc] 20 mg PO BEFORE BREAKFAST 11/03/14 Oxybutynin Chloride [Ditropan*] 5 mg PO BID 11/03/14 Saline Nasal Gel [[place] Saline Nasal Gel*] 1 gm TARAH TID 11/03/14 Sotalol HCl [Betapace] 40 mg PO BID 11/03/14 Acetaminophen [Feverall Supp*] 650 mg RC Q6H PRN 06/19/15 Acetaminophen [Tylenol*] 650 mg PO Q4H PRN 06/19/15 Cholecalciferol [Vitamin D*] 400 unit PO DAILY 06/19/15 Estrogens, Conj Vag Cream [Premarin*] 1 kenyetta VG Q7D 06/19/15 Fluoxetine HCl [Prozac*] 20 mg PO DAILY 06/19/15 Guaifenesin Soln [Guaifenesin Syrup*] 200 mg PO Q4H PRN 06/19/15 Guaifenesin/Dm Soln [Robitussin Dm Syrup*] 10 ml PO Q4H PRN 06/19/15 Lactase Chewtab [Lactaid Fast Act Chewtab*] 3,000 unit PO PRN PRN 06/19/15 Mag-Al Plus Xs Susp [Maalox Suspension*] 10 ml PO QID PRN 06/19/15 Magnesium Hydroxide [Milk of Magnesia*] 30 ml PO PRN PRN 06/19/15 Polyethylene Glycol 3350 [Miralax*] 17 gm PO DAILY 06/19/15 Sennosides [Sennagen*] 8.6 mg PO DAILY 06/19/15 Spironolactone [Aldactone*] 25 mg PO DAILY 06/19/15 Tea Tree Oil 1 kenyetta TP DAILY 06/19/15 buPROPion ER BID [Wellbutrin Sr Bid*] 100 mg PO BID 06/19/15 aspirin [Aspir 81] 81 mg PO DAILY #0 tablet. 06/20/15 Lactose-Reduced Food [Nutritional Shake] 60 ml PO BID 12/09/16 Loperamide HCl [Imodium Ad*] 2 mg PO TID PRN 12/09/16 Inpatient Medications 12/09/16 12:54 Polyethylene Glycol 3350 [miraLAX] 17 gm PO BID PRN 12/09/16 13:08 Ondansetron HCl [Zofran] 2 mg IV Q4H PRN 12/09/16 13:10 LORazepam [Ativan] 0.5 mg PO Q6H PRN 12/09/16 13:12 Acetaminophen [Tylenol] 650 mg PO Q4H PRN Mag-Al Plus Xs Susp [Maalox Liquid] 10 ml PO QID PRN Magnesium Hydroxide [Milk of Magnesia] 30 ml PO PRN PRN 12/09/16 13:29 Azelastine HCl Nasal [Astelin Nasal [place]] 1 mcg NASAL BID PRN 12/09/16 13:40 Saline Nasal Gel [[place] Saline Nasal Gel] 14 applic TOPICAL TID PRN 12/09/16 21:00 Docusate Sodium [Colace] 100 mg PO BID Sotalol HCl [Betapace AF] 40 mg PO BID buPROPion ER BID [Wellbutrin Sr Bid] 100 mg PO BID 12/10/16 06:30 Pantoprazole [Protonix] 20 mg PO BEFORE BREAKFAST 12/10/16 09:00 Cholecalciferol [Vitamin D3] 400 unit PO DAILY Fluoxetine HCl [Prozac] 20 mg PO DAILY Polyethylene Glycol 3350 [miraLAX] 17 gm PO DAILY Sennosides [Senna-Lax] 8.6 mg PO DAILY aspirin EC [Ecotrin 81 mg] 81 mg PO DAILY 12/11/16 16:00 Cephalexin Monohydrate [Keflex] 500 mg PO TID@0800,1600,2200 12/12/16 13:00 Oxybutynin Chloride [Ditropan] 5 mg PO BID 12/12/16 18:23 Bisacodyl [Dulcolax] 10 mg RECTAL Q12H PRN Procedures and tests throughout hospitalization: Completed Lab Orders 12/09/16 08:40 HEPATIC PANEL [CHEM] Routine LIPASE [CHEM] Routine 12/10/16 05:45 BASIC METABOLIC PANEL [CHEM] AMDRAW CBC AUTO DIF, MDIF/RMOR IF IND [HEM] AMDRAW 12/10/16 12:45 HGB & HCT PANEL [HEM] Routine 12/11/16 06:05 BASIC METABOLIC PANEL [CHEM] AMDRAW CBC AUTO DIF, MDIF/RMOR IF IND [HEM] AMDRAW 12/12/16 06:15 BMP [BASIC METABOLIC PANEL] [CHEM] AMDRAW CBC AUTO DIF, MDIF/RMOR IF IND [HEM] AMDRAW Pending Orders 12/09/16 12:54 Polyethylene Glycol 3350 [miraLAX] 17 gm PO BID PRN 12/09/16 13:08 Ondansetron HCl [Zofran] 2 mg IV Q4H PRN 12/09/16 13:10 LORazepam [Ativan] 0.5 mg PO Q6H PRN 12/09/16 13:11 Mighty Shake Supplement . 12/09/16 13:12 Acetaminophen [Tylenol] 650 mg PO Q4H PRN Mag-Al Plus Xs Susp [Maalox Liquid] 10 ml PO QID PRN Magnesium Hydroxide [Milk of Magnesia] 30 ml PO PRN PRN 12/09/16 13:29 Azelastine HCl Nasal [Astelin Nasal [place]] 1 mcg NASAL BID PRN Occupation Therapy Eval and Treat [OT] Routine 12/09/16 13:40 Saline Nasal Gel [[place] Saline Nasal Gel] 14 applic TOPICAL TID PRN 12/09/16 21:00 Docusate Sodium [Colace] 100 mg PO BID Sotalol HCl [Betapace AF] 40 mg PO BID buPROPion ER BID [Wellbutrin Sr Bid] 100 mg PO BID 12/09/16 Dinner Mechanical Soft 12/10/16 06:30 Pantoprazole [Protonix] 20 mg PO BEFORE BREAKFAST 12/10/16 07:36 SCD's [Sequential Compression Device] WHILE IN BED 12/10/16 09:00 Cholecalciferol [Vitamin D3] 400 unit PO DAILY Fluoxetine HCl [Prozac] 20 mg PO DAILY Polyethylene Glycol 3350 [miraLAX] 17 gm PO DAILY Sennosides [Senna-Lax] 8.6 mg PO DAILY aspirin EC [Ecotrin 81 mg] 81 mg PO DAILY 12/10/16 11:02 Telemetry monitoring CONTINUOUS TELE 12/10/16 12:35 Physical Therapy Plan of Care [PT] Routine 12/11/16 16:00 Cephalexin Monohydrate [Keflex] 500 mg PO TID@0800,1600,2200 12/12/16 13:00 Oxybutynin Chloride [Ditropan] 5 mg PO BID 12/12/16 18:23 Bisacodyl [Dulcolax] 10 mg RECTAL Q12H PRN IM: Discharge Physical Exam - I&O/Vital Signs I&O: Intake & Output 12/12/16 12/13/16 12/13/16 21:59 05:59 13:59 Intake Total 480 440 Balance 480 440 Intake: Oral 480 440 Other: Urine Color Yellow Stool Size Small Stool Characteristics Formed Brown Voiding Method Incontinent Incontinent # Voids 3 4 # Bowel Movements 1 Vital Signs: Last Vital Signs Temp 36.9 C 12/13/16 06:43 Pulse 67 12/13/16 06:43 Resp 15 12/13/16 06:43 BP 118/58 12/13/16 06:43 Pulse Ox 97 12/13/16 06:43 Oxygen Flow Rate 0.5 Oxygen Delivery Method Nasal Cannula - Constitutional General appearance: Present: thin. Absent: acute distress - Head Head exam: Present: normal inspection - Eye Eye exam: Present: EOMI. Absent: conjunctival injection Pupils: Present: PERRL - ENT ENT exam: Present: mucous membranes dry - Neck Neck exam: Present: full ROM, normal inspection - Respiratory Respiratory exam: Absent: respiratory distress - Cardiovascular Cardiovascular exam: Present: RRR, systolic murmur - GI/Abdominal GI/Abdominal exam: Absent: tenderness - Rectal Rectal exam: Present: deferred - Extremities Exam Extremities exam: Present: normal inspection, tenderness, other (ecchymosis inner left leg). Absent: edema - Neurological Exam Neurological exam: Present: alert. Absent: oriented X3 - Psychiatric Psychiatric exam: Present: flat affect - Skin Skin exam: Present: other (bruising right leg/buttock) - Allied Health Notes Allied health notes reviewed: nursing
[2016-12-13] MEDS: CEPHALEXIN MONOHYDRATE 250 MG CAPSULE PO SCH (10:01)
[2016-12-13] MEDS: DOCUSATE SODIUM 100 MG CAPSULE PO SCH (10:02)
[2016-12-13] MEDS: BUPROPION 100 MG PO SCH (10:02)
[2016-12-13] MEDS: SOTALOL HCL 80 MG TABLET PO SCH (10:02)
[2016-12-13] MEDS: POLYETHYLENE GLYCOL 3350 17 GM POWD.PACK PO SCH (10:03)
[2016-12-13] MEDS: FLUOXETINE HCL 20 MG CAPSULE PO SCH (10:03)
[2016-12-13] MEDS: CHOLECALCIFEROL 400 UNIT TABLET PO SCH (10:03)
[2016-12-13] MEDS: OXYBUTYNIN CHLORIDE 5 MG TABLET PO SCH (10:04)
[2016-12-13] MEDS: SENNOSIDES 8.6 MG TABLET PO SCH (10:04)
[2016-12-13 12:13] VITALS: BP 118/56; PULSE 74; RESP 18; TEMP 97; O2SAT 94
== END 2016-12-13 12:18 | disposition swing bed (61) | DRG 690 ==
LOC: ER 08:51 → IN 12:08
PROVIDERS: ADMIT Internal Medicine; ATTEND Internal Medicine
DX: N39.0 Urinary tract infection, site not specified (principal); R13.12 Dysphagia, oropharyngeal phase; R62.7 Adult failure to thrive; G31.09 Other frontotemporal neurocognitive disorder; F02.80 Dementia in other diseases classified elsewhere, unspecified severity, without behavioral disturbance, psychotic disturbance, mood disturbance, and anxiety; R26.0 Ataxic gait; D64.9 Anemia, unspecified; I95.0 Idiopathic hypotension; F32.9 Major depressive disorder, single episode, unspecified; M54.5 Low back pain; K21.9 Gastro-esophageal reflux disease without esophagitis; R09.02 Hypoxemia; E78.5 Hyperlipidemia, unspecified; M81.0 Age-related osteoporosis without current pathological fracture; K58.9 Irritable bowel syndrome, unspecified; I48.2 Chronic atrial fibrillation; R68.2 Dry mouth, unspecified; G62.9 Polyneuropathy, unspecified; Z79.899 Other long term (current) drug therapy; Z74.3 Need for continuous supervision
CPT/HCPCS: 36415; 51701; 80048; 80076; 81001; 83690; 85014; 85018; 85025; 87077; 87086; 87186; 93041; 96361; 96365; 99285; A0425; A0429; J0696; J2405; J7030

== ENCOUNTER 2016-12-13 07:44 | Inpatient (IN) | payer MEDICARE, OTHER ==
[2016-12-13] MEDS ORDERED: HOME MEDICATION LIST NEEDED 1 EA EACH MC ONE (12:00)
[2016-12-13] MEDS ORDERED: BISACODYL 10 MG SUPP.RECT RECTAL PRN (12:03)
[2016-12-13] MEDS ORDERED: POLYETHYLENE GLYCOL 3350 17 GM POWD.PACK PO PRN (12:03)
[2016-12-13] MEDS ORDERED: MAG-AL PLUS XS SUSP 30 ML UDC PO PRN (12:03)
[2016-12-13] MEDS ORDERED: ACETAMINOPHEN 325 MG TABLET PO PRN (12:03)
[2016-12-13] MEDS ORDERED: LORazepam 0.5 MG TABLET PO PRN (12:03)
[2016-12-13] MEDS ORDERED: AZELASTINE HCL NASAL PRN (12:03)
[2016-12-13] MEDS ORDERED: CONJUGATED ESTROGENS VG SCH (12:15)
[2016-12-13] MEDS: SALINE TOPICAL SCH ×2 (17:49→21:23)
[2016-12-13] MEDS: CEPHALEXIN MONOHYDRATE 250 MG CAPSULE PO SCH ×2 (17:50→21:22)
[2016-12-13] MEDS ORDERED: SOTALOL HCL 80 MG TABLET PO SCH (21:00)
[2016-12-13] MEDS: OXYBUTYNIN CHLORIDE 5 MG TABLET PO SCH (21:22)
[2016-12-13] MEDS: DOCUSATE SODIUM 100 MG CAPSULE PO SCH (21:22)
[2016-12-13] MEDS: BUPROPION 100 MG PO SCH (21:22)
[2016-12-14] MEDS ORDERED: NORMAL SALINE 1,000 ML IV ONE (00:07)
[2016-12-14] MEDS: NORMAL SALINE 1,000 ML IV SCH ×2 (00:15→06:42)
[2016-12-14 05:34] LABS: BASOPHILS 0.5 % (0.0-2.0); EOSINOPHILS 3.8 % (0.0-6.0); EOSINOPHILS# 0.3 X 10^3uL (0.0-0.4); HEMATOCRIT 29.2 % (36.0-48.0); HEMOGLOBIN 9.7 g/dL (12.0-16.0); LYMPHOCYTES 14.4 % (20.0-40.0); LYMPHOCYTES# 1.1 X 10^3uL (0.8-3.8); MEAN CELL VOLUME 93.1 fL (84.0-102.0); MEAN CORPUS. HGB CONCENTRATION 33.4 g/dL (32.0-36.0); MEAN CORPUSCULAR HEMOGLOBIN 31.1 pg (29.0-35.0); MEAN PLATELET VOLUME 7.5 fL (7.4-10.4); MONOCYTES 11.4 % (2.0-10.0); MONOCYTES# 0.8 X 10^3uL (0.2-1.0); NEUTROPHILS 69.9 % (54.0-75.0); NEUTROPHILS# 5.2 X 10^3uL (2.6-6.7); RED BLOOD COUNT 3.13 X 10^6uL (4.20-6.10); RED CELL DISTRIBUTION WIDTH 13.9 % (11.5-14.5); WHITE BLOOD COUNT 7.4 X 10^3uL (3.9-10.7)
[2016-12-14 05:53] LABS: BLOOD UREA NITROGEN 14 mg/dL (7-17); CALCIUM 7.9 mg/dL (8.4-10.2); CHLORIDE 105 mmol/L (98-107); CREATININE 0.8 mg/dL (0.5-1.0); GLUCOSE 109 mg/dL (70-100); POTASSIUM 4.1 mmol/L (3.5-5.1); SODIUM 141 mmol/L (137-145)
[2016-12-14] MEDS: PANTOPRAZOLE 40 MG TABLET PO SCH (06:43)
--- NOTE | 2016-12-14 07:21 | HISTORY & PHYSICAL ---
DATE OF ADMISSION: 12/13/16 ATTENDING PHYSICIAN: Anabella Moctezuma MD ADMITTING DIAGNOSES 1. Urinary tract infection, acute. 2. Ataxic gait with frequent falling and right leg injury. 3. Failure to thrive. 4. Frontotemporal dementia. HISTORY OF PRESENT ILLNESS: Patient is an 86-year-old female, who was admitted to the medical surgical floor on 12/09/16 with an urinary tract infection and fall. She was treated with Rocephin IV and then switched to Cephalexin once cultures and sensitivities were available in the hospital, and although she did not have any fractures, she had a great deal of ecchymosis of the right leg, and became somewhat anemic. Additional issues while in the acute care admission were that she was intermittently hypotensive, so that Spironolactone had to be discontinued. She has a history of paroxysmal atrial fibrillation and was continued on her half dose Sotalol at 40 mg twice daily. It was suggested to her Power of Cement Conveyor Operator that consideration should be given to placing the patient in [place] [facility] care, since she has fallen quite frequently , has some dementia with sundowning and was not really progressing well with physical therapy attempts. However, Power of Cement Conveyor Operator was adamant that they would prefer the patient return to her Assisted Living. Physical therapy was begun, but the patient had certainly not progressed to the point of being able to go back home, since she required a 2-person transfer assist and considerable help with walking even with her walker. She will need to walk 200 feet to the dining room at her Assisted Living facility. Therefore she is admitted to swing bed status for ongoing efforts to rehabilitate her. PAST MEDICAL HISTORY 1. Status post mitral valve repair. 2. Paroxysmal atrial fibrillation, recently taking off coumadin because of frequent falling and maintained on aspirin 81 mg. 3. 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 4. Severe dry eye and dry eye syndrome. 5. Cystocele with vaginal pessary in place. 6. Chronic lower back pain. 7. Gait instability with frequent falls. 8. Gastroesophageal reflux disease without esophagitis. 9. History of mitral valve regurgitation corrected with the mitral valve repair but with many subsequent complications. 10. Hereditary and idiopathic peripheral neuropathy. 11. Hyperlipidemia, treated only with diet with the patient having lost a great deal of weight over the years. 12. Chronic hypoxemia, for which she is maintained on oxygen. 13. Irritable bowel syndrome with constipation. 14. 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 15. Onychomycosis of the toenails. 16. Tibial fracture in 1993 after a fall down some stairs. 17. Osteoporosis. 18. Chronic postnasal drip and rhinitis. 19. Postmenopausal atrophic vaginitis. 20. History of intermittent urinary retention. 21. 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 22. Frontotemporal dementia, not treated with any medications. 23. Lactose intolerance. PAST SURGICAL HISTORY 1. Appendectomy. 2. Cataract surgery OU with intraocular lens implantation. 3. Dilation and curettage of the uterus. 4. Mitral valve with replacement with a partial prosthetic synthetic valve in 2012. ALLERGIES: Sulfa drugs. MEDICATIONS AT DISCHARGE Cephalexin 500 mg t.i.d. Acetaminophen 650 mg every 4 hours orally or rectally as needed. Aspirin 81 mg Ecotrin daily. Talpa saline nasal gel 3 times daily to each nostril with a cotton swab. Azelastine nasal spray one spray each nostril twice daily. Bupropion ER 100 mg twice daily. Calcium 600 mg with vitamin D 400 International Units twice daily. Colace 100 mg twice daily. Fluoxetine 20 mg daily. Lactate one with any lactose containing products as needed. Maalox 10 mL up to 4 times daily orally if needed. Milk of Magnesium 30 mL daily as needed. Nutra shakes 4 ounces twice daily. Pantoprazole 40 mg daily. Oxybutynin chloride 5 mg twice daily. Premarin cream 0.625 mg per gram half an applicator once weekly. Senokot 8.6 mg daily. Sotalol 80 mg half twice daily. Potassium chloride 10 MEQ daily. Vitamin D 400 International Units in addition to the previous contained in the calcium. 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 She was in 2008 and has no children. She has friends who have Power of Cement Conveyor Operator and now are general caretakers for her. She is a nonsmoker, nondrinker. FAMILY HISTORY: Father at an unknown age with coronary artery disease, and the patient was estranged from him. Mother at 84 with a history of dementia and congestive heart failure and she has no siblings. REVIEW OF SYSTEMS: Patient does not really cooperative with a review of systems. She is always complaining of being fatigued. She has chronic problems with constipation, and she is incontinent with both bowel and bladder frequently. PHYSICAL EXAMINATION VITAL SIGNS: Temperature 36.9, blood pressure 118/58, pulse 67, respiratory rate 16. Oxygen saturation 97% on room air. GENERAL: Alert. Is a thin elderly female who does not appear well. HEENT: Extraocular movements are intact. Pupils are equal, round and reactive to light. Sclera are anicteric. Oropharynx is extremely dry, causing the patient to have difficulty speaking and her teeth are in very poor repair. Tongue is midline. NECK: No jugular venous distention. No bruits. No adenopathy. She does have considerable kyphosis. Full range of motion. Her neck is nontender without thyromegaly. LUNGS: Decreased breath sounds but are clear throughout. CARDIOVASCULAR: Regular rate and rhythm with a 2/6 systolic ejection murmur at the midclavicular line to the apex. PMI nondisplaced. ABDOMEN: Soft, nontender. Bowel sounds are present. No masses palpated. EXTREMITIES: Calves are soft. There is some ecchymosis and slight edema of the right leg and particularly inner thigh and buttock. She has full range of motion. Dorsalis pedis pulses are 2+. Tibialis posterior pulses 1+. NEUROLOGIC: Patient has difficulty talking, mainly due to dry mouth. She is intermittent oriented and then seems to drift off. Cranial nerves are grossly intact. Motor strength 5/5 upper and 4+/5 lower. Gait is very hesitant and slow. Deep tendon reflexes not elicitable. Toes are downgoing bilaterally. DATA: On the day of discharge, shows an improved CBC with a white count of 8, 500. Hemoglobin is 11.1, hematocrit 34.3, platelet count 176,000. Chemistry is normal except for a glucose of 113. Calcium is slightly low at 8.3. Hepatic enzymes were last drawn on 12/09/16 and were normal. ASSESSMENT AND PLAN 1. Current urinary tract infection. Will complete Cephalexin for 3 more days and then reculture her urine. She has urinary retention and hopefully we can stay away from Platt catheters. 2. Frontotemporal dementia. Sometimes is problematic with mild sun downing, but at this time, the patient has responded to low-dose Ativan and redirection. 3. Unstable and ataxic gait. Continued efforts with physical therapy and occupational therapy to see if we can rehabilitate her enough to be suitable to return to Assisted Living. If not, she may need to be transferred to the [place] [facility]. 4. Paroxysmal atrial fibrillation. Rate is stable on low-dose Sotalol. 5. Hypotension. This is much improved with the discontinuation of Spironolactone. She tends to have hypokalemia without it, and I have started a low-dose of potassium chloride and have ordered a follow up potassium level for which is in 3 days. 6. Depression. Continue Fluoxetine and Bupropion. 7. Irritable bowel syndrome with constipation. This has been an ongoing issue. The patient does require several laxatives to try to keep things moving. 8. Gastroesophageal reflux disease. She takes Omeprazole at home, but we have substituted Pantoprazole while she is in the hospital setting. I will continue to monitor the patient while in the Transitional Care Unit. MARIAELENA
[2016-12-14] MEDS: DOCUSATE SODIUM 100 MG CAPSULE PO SCH ×2 (08:22→21:17)
[2016-12-14] MEDS: FLUOXETINE HCL 20 MG CAPSULE PO SCH (08:22)
[2016-12-14] MEDS: SENNOSIDES 8.6 MG TABLET PO SCH (08:22)
[2016-12-14] MEDS: CHOLECALCIFEROL 400 UNIT TABLET PO SCH (08:22)
[2016-12-14] MEDS: OXYBUTYNIN CHLORIDE 5 MG TABLET PO SCH ×2 (08:22→21:17)
[2016-12-14] MEDS: BUPROPION 100 MG PO SCH ×2 (08:23→21:18)
[2016-12-14] MEDS: CEPHALEXIN MONOHYDRATE 250 MG CAPSULE PO SCH ×3 (08:23→21:18)
[2016-12-14] MEDS: SALINE TOPICAL SCH ×3 (08:23→21:16)
[2016-12-14] MEDS: SOTALOL HCL 80 MG TABLET PO SCH ×2 (08:24→21:20)
[2016-12-14] MEDS ORDERED: POTASSIUM CHLORIDE ER 10 MEQ TABLET PO SCH (09:00)
--- NOTE | 2016-12-14 09:02 | PROGRESS NOTE: IM APSO ---
Assessment and Plan - Date of Encounter Date of Encounter: 12/14/16 (1) Hypotension Status: Acute Assessment and plan: Recurrent. Had an episode of hypotension last night with mild lightheadedness. Responded to gentle IV fluids. Will hold fluids tonight as she is tolerating oral intake well and blood pressures are better. No evidence of significant cardiac or pulmonary compromise. Spironolactone has been stopped. She remains on beta joceline. Current Visit: No (2) Urinary tract infection Status: Acute Assessment and plan: Afebrile. Episode of hypotension last night, but no evidence of significant worsening of infection. Continue with current antibiotic therapy. Mattson catheter remains in place. Current Visit: No (3) Atrial fibrillation, controlled Status: Acute Assessment and plan: Episode of hypotension last night which responded well to IV fluids. Known atrial fibrillation. Heart rate appears well controlled. Continue beta joceline. Hold for hypotension. Current Visit: Yes - Time Spent With Patient Total time spent with greater than 50% in coordination of care (as documented) at patient's floor/unit and/or counseling patient: 16-24 minutes IM: PN Subjective General: fatigue, malaise, no good appetite, no fever, no chills Cardiovascular: palpitations (intermittent), no chest pain Respiratory: no cough, no SOB Gastrointestinal: no abdominal pain, no nausea, no vomiting Genitourinary: other (mattson) Musculoskeletal: weakness (gen) Neurological: other (mild LH last night, none now) IM: PN Objective Exam - I&O/Vital Signs I&O: Intake & Output 12/13/16 12/14/16 12/14/16 21:59 05:59 13:59 Intake Total 350 450 891 Balance 350 450 891 Weight 43.545 kg Intake: IV 891 Left Antecubital 891 Oral 350 450 Other: Urine Color Yellow Yellow Stool Size Small Small Stool Characteristics Soft Soft Voiding Method Incontinent Incontinent # Voids 2 3 # Bowel Movements 0 Vital Signs: Last Vital Signs Temp 37.2 C 12/14/16 06:54 Pulse 66 12/14/16 06:54 Resp 18 12/14/16 07:50 BP 112/56 12/14/16 06:54 Pulse Ox 94 12/14/16 07:50 Oxygen Flow Rate 0.5 Oxygen Delivery Method Nasal Cannula - Constitutional General appearance: Present: thin, other (frail) - Head Head exam: Absent: atraumatic - ENT ENT exam: Present: mucous membranes dry - Neck Neck exam: Absent: tenderness - Respiratory Respiratory exam: Present: decreased breath sounds, clear (anteriorly/laterally) . Absent: chest wall tenderness - Cardiovascular Cardiovascular exam: Present: RRR (with occasional ectopy), systolic murmur. Absent: S3 - GI/Abdominal GI/Abdominal exam: Present: distended (mildly), normal bowel sounds. Absent: organomegaly, tenderness - External exam: Present: other (Mattson catheter in place) - Extremities Exam Extremities exam: Present: edema (trace) - Neurological Exam Neurological exam: Present: alert (interactive, mild confusion) - Psychiatric Psychiatric exam: Absent: anxious, depressed - Skin Skin exam: Absent: rash - Allied Health Notes Allied health notes reviewed: nursing - Lab Labs: Laboratory Last Values WBC 7.4 X 10^3uL (3.9-10.7) 12/14/16 05:00 RBC 3.13 X 10^6uL (4.20-6.10) L 12/14/16 05:00 Hgb 9.7 g/dL (12.0-16.0) L 12/14/16 05:00 Hct 29.2 % (36.0-48.0) L 12/14/16 05:00 MCV 93.1 fL (84.0-102.0) 12/14/16 05:00 MCH 31.1 pg (29.0-35.0) 12/14/16 05:00 MCHC 33.4 g/dL (32.0-36.0) 12/14/16 05:00 RDW 13.9 % (11.5-14.5) 12/14/16 05:00 Plt Count 183 X 10^3uL (130-440) 12/14/16 05:00 MPV 7.5 fL (7.4-10.4) 12/14/16 05:00 Neutrophils % 69.9 % (54.0-75.0) 12/14/16 05:00 Lymphocytes % 14.4 % (20.0-40.0) L 12/14/16 05:00 Eosinophils % 3.8 % (0.0-6.0) 12/14/16 05:00 Basophils % 0.5 % (0.0-2.0) 12/14/16 05:00 Neutrophils # 5.2 X 10^3uL (2.6-6.7) 12/14/16 05:00 Lymphocytes # 1.1 X 10^3uL (0.8-3.8) 12/14/16 05:00 Monocytes 11.4 % (2.0-10.0) H 12/14/16 05:00 Monocytes # 0.8 X 10^3uL (0.2-1.0) 12/14/16 05:00 Eosinophils # 0.3 X 10^3uL (0.0-0.4) 12/14/16 05:00 Basophils # 0.0 X 10^3uL (0.0-0.1) 12/14/16 05:00 Sodium 141 mmol/L (137-145) 12/14/16 05:00 Potassium 4.1 mmol/L (3.5-5.1) 12/14/16 05:00 Chloride 105 mmol/L (98-107) 12/14/16 05:00 Carbon Dioxide 32 mmol/L (22-30) H 12/14/16 05:00 BUN 14 mg/dL (7-17) 12/14/16 05:00 Creatinine 0.8 mg/dL (0.5-1.0) 12/14/16 05:00 GFR Calculation Not Reportable 12/14/16 05:00 Glucose 109 mg/dL (70-100) H 12/14/16 05:00 Calcium 7.9 mg/dL (8.4-10.2) L 12/14/16 05:00 Quality Questions - VTE Prophylaxis Assessment VTE Present on Admission?: No Patient at risk for venous thromboembolism?: Yes VTE Risk Level: High Risk VTE Medical Contraindication: N/A-VTE Prophylaxis ordered (1) Hypotension Qualifiers: Hypotension type: idiopathic hypotension Qualified Code(s): I95.0 - Idiopathic hypotension (2) Urinary tract infection Qualifiers: Urinary tract infection type: acute cystitis Hematuria presence: without hematuria Qualified Code(s): N30.00 - Acute cystitis without hematuria
[2016-12-14] MEDS ORDERED: BISACODYL 10 MG SUPP.RECT RECTAL ONE (16:10)
[2016-12-15] MEDS: PANTOPRAZOLE 40 MG TABLET PO SCH (06:06)
[2016-12-15 06:29] LABS: BLOOD UREA NITROGEN 13 mg/dL (7-17); CALCIUM 8.5 mg/dL (8.4-10.2); CHLORIDE 102 mmol/L (98-107); CREATININE 0.7 mg/dL (0.5-1.0); GLUCOSE 105 mg/dL (70-100); SODIUM 135 mmol/L (137-145)
--- NOTE | 2016-12-15 07:54 | PROGRESS NOTE: IM APSO ---
Assessment and Plan - Date of Encounter Date of Encounter: 12/15/16 (1) Hypotension Status: Acute Assessment and plan: Unexplained. ACTH stimulation testing ordered to look for adrenal insufficiency. Currently stable again. Current Visit: No (2) Urinary tract infection Status: Acute Assessment and plan: Completing two more days of Cephalexin, then will discontinue antibiotics. Mattson catheter has been removed. Current Visit: No (3) Atrial fibrillation, controlled Status: Acute Assessment and plan: Paroxysmal. Rate remains stable. Current Visit: Yes (4) Frontotemporal dementia Status: Chronic Assessment and plan: Irritable much of the time. Mental acuity tends to wax and wane. Current Visit: No - Time Spent With Patient Total time spent with greater than 50% in coordination of care (as documented) at patient's floor/unit and/or counseling patient: 16-24 minutes IM: PN Subjective Interval history: Patient had more episodes of hypotension on 12/13, in spite of cessation of her spironolactone. She has responded to fluid administration, and is doing better. However, episodes are unexplained, and she has also redeveloped anemia , with Hgb of 9.7. General: fatigue, malaise, no good appetite, no fever, no chills Cardiovascular: palpitations (intermittent), no chest pain Respiratory: no cough, no SOB Gastrointestinal: no abdominal pain, no nausea, no vomiting Genitourinary: other (mattson) Musculoskeletal: weakness (gen) Neurological: other (mild LH last night, none now) IM: PN Objective Exam - I&O/Vital Signs I&O: Intake & Output 12/14/16 12/15/16 12/15/16 21:59 05:59 13:59 Intake Total 450 350 Balance 450 350 Weight 40.823 kg Intake: IV 250 0 Left Antecubital 250 0 Oral 200 350 Other: Urine Color Straw Stool Size Large Stool Characteristics Soft Soft Liquid Brown Voiding Method Incontinent Incontinent # Voids 2 3 # Bowel Movements 0 2 Vital Signs: Last Vital Signs Temp 37.1 C 12/15/16 06:21 Pulse 80 12/15/16 06:21 Resp 20 12/15/16 06:21 BP 107/59 12/15/16 06:21 Pulse Ox 92 12/15/16 06:21 Oxygen Flow Rate 0.5 Oxygen Delivery Method Nasal Cannula - Constitutional General appearance: Present: thin - Head Head exam: Absent: atraumatic - Eye Eye exam: Present: EOMI Pupils: Present: PERRL - ENT ENT exam: Present: mucous membranes dry - Neck Neck exam: Absent: tenderness - Respiratory Respiratory exam: Present: decreased breath sounds, clear. Absent: chest wall tenderness - Cardiovascular Cardiovascular exam: Present: RRR (with occasional ectopy), systolic murmur. Absent: S3 - GI/Abdominal GI/Abdominal exam: Present: distended (mildly), normal bowel sounds. Absent: organomegaly, tenderness - External exam: Present: other (Mattson catheter in place) - Extremities Exam Extremities exam: Present: edema (trace) - Neurological Exam Neurological exam: Present: alert - Psychiatric Psychiatric exam: Present: flat affect. Absent: anxious, depressed - Skin Skin exam: Absent: rash - Allied Health Notes Allied health notes reviewed: nursing, PT, social work - Lab Labs: Laboratory Last Values WBC 7.4 X 10^3uL (3.9-10.7) 12/14/16 05:00 RBC 3.13 X 10^6uL (4.20-6.10) L 12/14/16 05:00 Hgb 9.7 g/dL (12.0-16.0) L 12/14/16 05:00 Hct 29.2 % (36.0-48.0) L 12/14/16 05:00 MCV 93.1 fL (84.0-102.0) 12/14/16 05:00 MCH 31.1 pg (29.0-35.0) 12/14/16 05:00 MCHC 33.4 g/dL (32.0-36.0) 12/14/16 05:00 RDW 13.9 % (11.5-14.5) 12/14/16 05:00 Plt Count 183 X 10^3uL (130-440) 12/14/16 05:00 MPV 7.5 fL (7.4-10.4) 12/14/16 05:00 Neutrophils % 69.9 % (54.0-75.0) 12/14/16 05:00 Lymphocytes % 14.4 % (20.0-40.0) L 12/14/16 05:00 Eosinophils % 3.8 % (0.0-6.0) 12/14/16 05:00 Basophils % 0.5 % (0.0-2.0) 12/14/16 05:00 Neutrophils # 5.2 X 10^3uL (2.6-6.7) 12/14/16 05:00 Lymphocytes # 1.1 X 10^3uL (0.8-3.8) 12/14/16 05:00 Monocytes 11.4 % (2.0-10.0) H 12/14/16 05:00 Monocytes # 0.8 X 10^3uL (0.2-1.0) 12/14/16 05:00 Eosinophils # 0.3 X 10^3uL (0.0-0.4) 12/14/16 05:00 Basophils # 0.0 X 10^3uL (0.0-0.1) 12/14/16 05:00 Sodium 135 mmol/L (137-145) L 12/15/16 05:55 Potassium 4.0 mmol/L (3.5-5.1) 12/15/16 05:55 Chloride 102 mmol/L (98-107) 12/15/16 05:55 Carbon Dioxide 31 mmol/L (22-30) H 12/15/16 05:55 BUN 13 mg/dL (7-17) 12/15/16 05:55 Creatinine 0.7 mg/dL (0.5-1.0) 12/15/16 05:55 GFR Calculation Not Reportable 12/15/16 05:55 Glucose 105 mg/dL (70-100) H 12/15/16 05:55 Calcium 8.5 mg/dL (8.4-10.2) 12/15/16 05:55 (1) Hypotension Qualifiers: Hypotension type: idiopathic hypotension Qualified Code(s): I95.0 - Idiopathic hypotension (2) Urinary tract infection Qualifiers: Urinary tract infection type: acute cystitis Hematuria presence: without hematuria Qualified Code(s): N30.00 - Acute cystitis without hematuria
[2016-12-15] MEDS: CHOLECALCIFEROL 400 UNIT TABLET PO SCH (08:47)
[2016-12-15] MEDS: DOCUSATE SODIUM 100 MG CAPSULE PO SCH ×2 (08:47→21:21)
[2016-12-15] MEDS: SENNOSIDES 8.6 MG TABLET PO SCH (08:47)
[2016-12-15] MEDS: OXYBUTYNIN CHLORIDE 5 MG TABLET PO SCH ×2 (08:48→21:22)
[2016-12-15] MEDS: FLUOXETINE HCL 20 MG CAPSULE PO SCH (08:48)
[2016-12-15] MEDS: BUPROPION 100 MG PO SCH ×2 (08:48→21:22)
[2016-12-15] MEDS: CEPHALEXIN MONOHYDRATE 250 MG CAPSULE PO SCH ×3 (08:48→21:23)
[2016-12-15] MEDS: SALINE TOPICAL SCH ×3 (08:51→21:14)
[2016-12-15] MEDS: SOTALOL HCL 80 MG TABLET PO SCH ×2 (08:53→21:21)
[2016-12-15] MEDS ORDERED: CEPHALEXIN MONOHYDRATE 250 MG CAPSULE PO ONE (21:14)
[2016-12-16 06:35] LABS: HEMATOCRIT 31.4 % (36.0-48.0); HEMOGLOBIN 10.3 g/dL (12.0-16.0)
[2016-12-16] MEDS: PANTOPRAZOLE 40 MG TABLET PO SCH (06:38)
[2016-12-16 06:43] LABS: BLOOD UREA NITROGEN 14 mg/dL (7-17); CALCIUM 8.7 mg/dL (8.4-10.2); CHLORIDE 101 mmol/L (98-107); CREATININE 0.7 mg/dL (0.5-1.0); GLUCOSE 103 mg/dL (70-100); POTASSIUM 3.8 mmol/L (3.5-5.1); SODIUM 137 mmol/L (137-145)
[2016-12-16] MEDS ORDERED: COSYNTROPIN 0.25 MG/ML VIAL IV SCH (07:00)
[2016-12-16] MEDS: CEPHALEXIN MONOHYDRATE 250 MG CAPSULE PO SCH ×3 (08:57→21:59)
[2016-12-16] MEDS: DOCUSATE SODIUM 100 MG CAPSULE PO SCH ×2 (08:57→20:39)
[2016-12-16] MEDS: OXYBUTYNIN CHLORIDE 5 MG TABLET PO SCH ×2 (08:57→20:42)
[2016-12-16] MEDS: CHOLECALCIFEROL 400 UNIT TABLET PO SCH (08:57)
[2016-12-16] MEDS: FLUOXETINE HCL 20 MG CAPSULE PO SCH (08:58)
[2016-12-16] MEDS: SALINE TOPICAL SCH ×3 (08:58→20:37)
[2016-12-16] MEDS: SENNOSIDES 8.6 MG TABLET PO SCH (08:58)
[2016-12-16] MEDS: BUPROPION 100 MG PO SCH ×2 (08:58→20:39)
[2016-12-16] MEDS: SOTALOL HCL 80 MG TABLET PO SCH ×2 (09:11→20:42)
[2016-12-16 11:00] LABS: CORTISOL 15.9 ug/dL (10.4-26.4)
[2016-12-17] MEDS: PANTOPRAZOLE 40 MG TABLET PO SCH (06:36)
--- NOTE | 2016-12-17 08:04 | PROGRESS NOTE: IM APSO ---
Assessment and Plan - Date of Encounter Date of Encounter: 12/17/16 (1) Hypotension Status: Acute Assessment and plan: Still persistent, so that medications have to be held at times. However, the patient is rarely symptomatic, and adrenal testing is negative. Consider low dose Florinef trial to see how she tolerates that. Patient needs to continue her Sotalol for rhythm control of atrial fibrillation. Current Visit: No (2) Urinary tract infection Status: Acute Assessment and plan: Antibiotic course completed, will discontinue and recheck her urine on Tuesday. Has a pessary in place, which contaminates urine samples, and makes a diagnosis of uti difficult at times. Current Visit: No (3) Atrial fibrillation, controlled Status: Acute Assessment and plan: Some difficulty in dosing the patient adequately due to hypotension, so plan to try Florinef as above. Current Visit: Yes (4) Frontotemporal dementia Status: Chronic Assessment and plan: No behavioral issues and is cooperating with physical therapy efforts well. Current Visit: No - Time Spent With Patient Total time spent with greater than 50% in coordination of care (as documented) at patient's floor/unit and/or counseling patient: 16-24 minutes IM: PN Subjective Interval history: Patient has been stable over the past two days, but still tends to hypotension. She had negative adrenal stimulation testing yesterday. Progressing with physical therapy, so I am more hopeful that she will be able to return to her [facility], since they are willing to provide the care that she will need. General: malaise, no fatigue, no good appetite, no fever, no chills Cardiovascular: no chest pain, no palpitations Respiratory: no cough, no SOB Gastrointestinal: no abdominal pain, no nausea, no vomiting Genitourinary: other (mattson) Musculoskeletal: weakness (generalized, but improving) Neurological: other (mild LH last night, none now) IM: PN Objective Exam - I&O/Vital Signs I&O: Intake & Output 12/16/16 12/17/16 12/17/16 21:59 05:59 13:59 Intake Total 500 0 Output Total 0 Balance 500 0 Intake: Oral 500 0 Output: Urine 0 Other: Voiding Method Incontinent # Voids 4 0 # Bowel Movements 0 Vital Signs: Last Vital Signs Temp 36.5 C 12/16/16 18:53 Pulse 71 12/16/16 18:53 Resp 16 12/16/16 19:40 BP 98/51 12/16/16 18:53 Pulse Ox 90 12/16/16 18:53 Oxygen Flow Rate 0.5 Oxygen Delivery Method Nasal Cannula - Constitutional General appearance: Present: thin - Head Head exam: Absent: atraumatic - Eye Eye exam: Present: EOMI Pupils: Present: PERRL - ENT ENT exam: Present: mucous membranes moist - Neck Neck exam: Absent: tenderness - Respiratory Respiratory exam: Present: decreased breath sounds, clear. Absent: chest wall tenderness - Cardiovascular Cardiovascular exam: Present: RRR, systolic murmur. Absent: S3 - GI/Abdominal GI/Abdominal exam: Present: normal bowel sounds, soft. Absent: organomegaly, tenderness - External exam: Present: other (Mattson catheter in place) - Extremities Exam Extremities exam: Absent: edema, tenderness - Neurological Exam Neurological exam: Present: alert - Psychiatric Psychiatric exam: Present: flat affect. Absent: anxious, depressed - Skin Skin exam: Absent: rash - Allied Health Notes Allied health notes reviewed: nursing, PT, social work - Lab Labs: Laboratory Last Values WBC 7.4 X 10^3uL (3.9-10.7) 12/14/16 05:00 RBC 3.13 X 10^6uL (4.20-6.10) L 12/14/16 05:00 Hgb 10.3 g/dL (12.0-16.0) L 12/16/16 05:00 Hct 31.4 % (36.0-48.0) L 12/16/16 05:00 MCV 93.1 fL (84.0-102.0) 12/14/16 05:00 MCH 31.1 pg (29.0-35.0) 12/14/16 05:00 MCHC 33.4 g/dL (32.0-36.0) 12/14/16 05:00 RDW 13.9 % (11.5-14.5) 12/14/16 05:00 Plt Count 183 X 10^3uL (130-440) 12/14/16 05:00 MPV 7.5 fL (7.4-10.4) 12/14/16 05:00 Neutrophils % 69.9 % (54.0-75.0) 12/14/16 05:00 Lymphocytes % 14.4 % (20.0-40.0) L 12/14/16 05:00 Eosinophils % 3.8 % (0.0-6.0) 12/14/16 05:00 Basophils % 0.5 % (0.0-2.0) 12/14/16 05:00 Neutrophils # 5.2 X 10^3uL (2.6-6.7) 12/14/16 05:00 Lymphocytes # 1.1 X 10^3uL (0.8-3.8) 12/14/16 05:00 Monocytes 11.4 % (2.0-10.0) H 12/14/16 05:00 Monocytes # 0.8 X 10^3uL (0.2-1.0) 12/14/16 05:00 Eosinophils # 0.3 X 10^3uL (0.0-0.4) 12/14/16 05:00 Basophils # 0.0 X 10^3uL (0.0-0.1) 12/14/16 05:00 Sodium 137 mmol/L (137-145) 12/16/16 05:00 Potassium 3.8 mmol/L (3.5-5.1) 12/16/16 05:00 Chloride 101 mmol/L (98-107) 12/16/16 05:00 Carbon Dioxide 31 mmol/L (22-30) H 12/16/16 05:00 BUN 14 mg/dL (7-17) 12/16/16 05:00 Creatinine 0.7 mg/dL (0.5-1.0) 12/16/16 05:00 GFR Calculation Not Reportable 12/16/16 05:00 Glucose 103 mg/dL (70-100) H 12/16/16 05:00 Calcium 8.7 mg/dL (8.4-10.2) 12/16/16 05:00 Cortisol 31.5 ug/dL (10.4-26.4) H 12/16/16 08:00 (1) Hypotension Qualifiers: Hypotension type: idiopathic hypotension Qualified Code(s): I95.0 - Idiopathic hypotension (2) Urinary tract infection Qualifiers: Urinary tract infection type: acute cystitis Hematuria presence: without hematuria Qualified Code(s): N30.00 - Acute cystitis without hematuria
[2016-12-17] MEDS: OXYBUTYNIN CHLORIDE 5 MG TABLET PO SCH ×2 (09:57→21:10)
[2016-12-17] MEDS: SENNOSIDES 8.6 MG TABLET PO SCH (09:57)
[2016-12-17] MEDS: CHOLECALCIFEROL 400 UNIT TABLET PO SCH (09:57)
[2016-12-17] MEDS: FLUOXETINE HCL 20 MG CAPSULE PO SCH (09:57)
[2016-12-17] MEDS: DOCUSATE SODIUM 100 MG CAPSULE PO SCH ×2 (09:57→21:10)
[2016-12-17] MEDS: SOTALOL HCL 80 MG TABLET PO SCH ×2 (09:58→21:16)
[2016-12-17] MEDS: SALINE TOPICAL SCH ×4 (09:58→21:37)
[2016-12-17] MEDS: FLUDROCORTISONE 0.1 MG PO SCH (09:58)
[2016-12-17] MEDS: BUPROPION 100 MG PO SCH ×2 (10:00→21:10)
[2016-12-18] MEDS: PANTOPRAZOLE 40 MG TABLET PO SCH (06:07)
[2016-12-18] MEDS: SALINE TOPICAL SCH ×3 (08:55→21:52)
[2016-12-18] MEDS: DOCUSATE SODIUM 100 MG CAPSULE PO SCH ×2 (08:55→21:42)
[2016-12-18] MEDS: OXYBUTYNIN CHLORIDE 5 MG TABLET PO SCH ×2 (08:56→21:45)
[2016-12-18] MEDS: FLUDROCORTISONE 0.1 MG PO SCH (09:04)
[2016-12-18] MEDS: FLUOXETINE HCL 20 MG CAPSULE PO SCH (09:04)
[2016-12-18] MEDS: CHOLECALCIFEROL 400 UNIT TABLET PO SCH (09:05)
[2016-12-18] MEDS: SENNOSIDES 8.6 MG TABLET PO SCH (09:05)
[2016-12-18] MEDS: BUPROPION 100 MG PO SCH ×2 (09:06→21:44)
[2016-12-18] MEDS: SOTALOL HCL 80 MG TABLET PO SCH ×2 (09:29→21:44)
[2016-12-19] MEDS: PANTOPRAZOLE 40 MG TABLET PO SCH (06:30)
[2016-12-19] MEDS: FLUOXETINE HCL 20 MG CAPSULE PO SCH (08:28)
[2016-12-19] MEDS: OXYBUTYNIN CHLORIDE 5 MG TABLET PO SCH ×2 (08:28→20:33)
[2016-12-19] MEDS: SENNOSIDES 8.6 MG TABLET PO SCH (08:28)
[2016-12-19] MEDS: CHOLECALCIFEROL 400 UNIT TABLET PO SCH (08:28)
[2016-12-19] MEDS: DOCUSATE SODIUM 100 MG CAPSULE PO SCH ×2 (08:28→20:34)
[2016-12-19] MEDS: BUPROPION 100 MG PO SCH ×2 (08:30→20:34)
[2016-12-19] MEDS: SALINE TOPICAL SCH ×2 (08:30→20:34)
[2016-12-19] MEDS: FLUDROCORTISONE 0.1 MG PO SCH (08:30)
[2016-12-19] MEDS: SOTALOL HCL 80 MG TABLET PO SCH ×2 (08:30→20:38)
[2016-12-19 11:16] LABS: URINE APPEARANCE CLEAR; URINE BILIRUBIN NEGATIVE (NEGATIVE); URINE BLOOD NEGATIVE (NEGATIVE); URINE COLOR YELLOW; URINE GLUCOSE NORMAL (NEGATIVE); URINE KETONE NEGATIVE (NEGATIVE); URINE LEUKOCYTE ESTERASE NEGATIVE (NEGATIVE); URINE MUCUS NONE SEEN (Up to 25%); URINE NITRITE NEGATIVE (NEGATIVE); URINE PH 7.5 (5-7); URINE PROTEIN NEGATIVE (NEG - TRACE); URINE RBC NONE SEEN (0-5/hpf); URINE SPECIFIC GRAVITY 1.015 (0.001-1.035); URINE UROBILINOGEN 0.2mg/dL (Normal) (NEG-1mg/dL)
[2016-12-19 11:22] LABS: URINE BACTERIA NONE SEEN (<10/hpf); URINE SQUAMOUS EPITHELIAL CELL 0-5/hpf (<= 15/hpf); URINE YEAST PRESENT (None Seen)
[2016-12-20] MEDS: PANTOPRAZOLE 40 MG TABLET PO SCH (06:27)
[2016-12-20 06:33] LABS: BASOPHILS 0.6 % (0.0-2.0); EOSINOPHILS 3.8 % (0.0-6.0); EOSINOPHILS# 0.3 X 10^3uL (0.0-0.4); HEMATOCRIT 30.3 % (36.0-48.0); HEMOGLOBIN 9.9 g/dL (12.0-16.0); LYMPHOCYTES 19.8 % (20.0-40.0); LYMPHOCYTES# 1.3 X 10^3uL (0.8-3.8); MEAN CELL VOLUME 93.7 fL (84.0-102.0); MEAN CORPUS. HGB CONCENTRATION 32.7 g/dL (32.0-36.0); MEAN CORPUSCULAR HEMOGLOBIN 30.7 pg (29.0-35.0); MEAN PLATELET VOLUME 6.7 fL (7.4-10.4); MONOCYTES 9.9 % (2.0-10.0); MONOCYTES# 0.7 X 10^3uL (0.2-1.0); NEUTROPHILS 65.9 % (54.0-75.0); NEUTROPHILS# 4.3 X 10^3uL (2.6-6.7); PLATELET COUNT 282 X 10^3uL (130-440); RED BLOOD COUNT 3.23 X 10^6uL (4.20-6.10); WHITE BLOOD COUNT 6.6 X 10^3uL (3.9-10.7)
[2016-12-20] MEDS: SALINE TOPICAL SCH ×4 (06:42→21:17)
[2016-12-20 06:48] LABS: BLOOD UREA NITROGEN 16 mg/dL (7-17); CALCIUM 8.4 mg/dL (8.4-10.2); CHLORIDE 101 mmol/L (98-107); CREATININE 0.7 mg/dL (0.5-1.0); GLUCOSE 91 mg/dL (70-100); SODIUM 136 mmol/L (137-145)
[2016-12-20] MEDS: FLUDROCORTISONE 0.1 MG PO SCH (08:19)
[2016-12-20] MEDS: OXYBUTYNIN CHLORIDE 5 MG TABLET PO SCH ×2 (08:20→21:20)
[2016-12-20] MEDS: BUPROPION 100 MG PO SCH ×2 (08:20→21:21)
[2016-12-20] MEDS: DOCUSATE SODIUM 100 MG CAPSULE PO SCH ×2 (08:20→21:20)
[2016-12-20] MEDS: SENNOSIDES 8.6 MG TABLET PO SCH (08:21)
[2016-12-20] MEDS: FLUOXETINE HCL 20 MG CAPSULE PO SCH (08:21)
[2016-12-20] MEDS: CHOLECALCIFEROL 400 UNIT TABLET PO SCH (08:21)
[2016-12-20] MEDS: SOTALOL HCL 80 MG TABLET PO SCH ×2 (08:22→21:28)
[2016-12-20 09:09] LABS: FERRITIN 79 ng/mL (11-264)
[2016-12-20 11:01] LABS: IRON 40 ug/dL (37-170)
[2016-12-20 11:08] LABS: TOTAL IRON BINDING CAPACITY 209 ug/mL (250-400); TRANSFERRIN 140 mg/dL (206-381); TRANSFERRIN SATURATION 19 % (14-50)
--- NOTE | 2016-12-20 12:20 | DC SUMMARY: IM Note ---
Discharge Summary: IM/Peds Provider: Date of Admission: 12/13/16 Admitting Provider: REDDY CELAYA MD Attending Provider: REDDY CELAYA MD Discharging Provider: REDDY CELAYA MD Primary Care Provider: Discharge Date: 12/20/16 Consults: 12/13/16 12:00 Nutrition/Dietary Consult [CONS] Routine Reason: Swingbed Admission Protocol - Diagnosis (1) Hypotension Status: Acute Qualifiers: Hypotension type: idiopathic hypotension Qualified Code(s): I95.0 - Idiopathic hypotension (2) Urinary tract infection Status: Acute Qualifiers: Urinary tract infection type: acute cystitis Hematuria presence: without hematuria Qualified Code(s): N30.00 - Acute cystitis without hematuria (3) Atrial fibrillation, controlled Status: Acute (4) Frontotemporal dementia Status: Chronic Hospital Course: Patient was originally admitted to the hospital setting after a fall without severe injury and a urinary tract infection. She was treated for the latter with appropriate antibiotics. Her fall had caused bruising of the right leg, felt to be contributing to anemia. She was also having problematic hypotension , with an underlying history of paroxysmal atrial fibrillation and mitral valve repair. She was admitted to transitional care status for ongoing physical therapy efforts, as she has lost considerable ground in terms of function, particularly transfer and ambulation. During her transitional care stay, patient continued to have intermittent problematic hypotension. She had already been taken off her diuretic, Spironolactone, which resulted in some hypokalemia, so potassium chloride was added to her regimen. She had normal adrenal stimulation testing, and I started a very low dose of Florinef at 0.05mg, which did stabilize her blood pressure, so has been continued. BMP assessed on 12/20 was normal. Laboratory studies for her anemia suggested iron deficiency, and stool has tested multiple times negatively for blood. Patient will resume her iron tablets, as her POA does not wish aggressive intervention. B12 studies are still pending. Repeat urinalysis showed clearing of infection. By the time of the patient's return to her [facility], where the staff expressed willingness to take her back, in spite of my assessment that the patient might be just as well served in a jail setting at this point. She has dementia which as progressed to the point of her understanding very little on some days, and not communicating well. However, [facility] is the preference of the patient, her POA and the [facility] staff at this time. Patient has incontinence of both urine and stool, and needs a great deal of help. She is still eating independently. - Time Spent with Patient Total time spent providing and/or coordinating discharge services: Time with patient DS: Greater than 30 minutes Specific discharge activities: Ambulate with walker Discharge - Patient/Caregiver Discharge Instructions Activity Level: Ambulate with walker Diet: Regular, soft mechanical Follow up: REDDY CELAYA MD [Primary Care Provider] - 01/07/17 11:30 am Overall discharge status: patient is progressing back to baseline Home Medications: Calcium Carbonate/Vitamin D3 [Calcium 600 + Vit D Tablet] 1 each PO BID #60 tablet Lactase [Lactaid] 3,000 unit PO TID PRN #100 tab.chew PRN Reason: Lactose Intolerance Potassium Chloride ER [Micro-K 10 Meq*] 1 tab PO DAILY #30 tab Non-Formulary Medication 0.05 mg PO DAILY #30 ea Omeprazole 20 mg PO DAILY #30 tab Orders: BASIC METABOLIC PANEL [CHEM] Time Frame: 1 Week, Facility: [facility], Location: LABORATORY Outpatient Physical Therapy Eval & Treat Location: Determined By Patient Disposition: HOME, SELF-CARE Discharge Summary Data - Medication History Medication History: Home Medications Azelastine HCl 1 spray NS BID PRN 11/03/14 Docusate Sodium [Colace*] 100 mg PO BID 11/03/14 Saline Nasal Gel [[place] Saline Nasal Gel*] 1 gm TARAH TID 11/03/14 Sotalol HCl [Betapace] 40 mg PO BID 11/03/14 Cholecalciferol [Vitamin D*] 400 unit PO DAILY 06/19/15 Estrogens, Conj Vag Cream [Premarin*] 1 kenyetta VG Q7D 06/19/15 Fluoxetine HCl [Prozac*] 20 mg PO DAILY 06/19/15 Sennosides [Sennagen*] 8.6 mg PO DAILY 06/19/15 aspirin [Aspir 81] 81 mg PO DAILY #0 tablet. 06/20/15 Bisacodyl [Dulcolax*] 10 mg RECTAL Q12H PRN #0 supp.rect 12/13/16 Cephalexin Monohydrate [Keflex*] 500 mg PO TID@0800,1600,2200 capsule 12/13/16 LORazepam [Ativan] 0.5 mg PO Q6H PRN #0 tablet 12/13/16 Oxybutynin Chloride [Ditropan*] 5 mg PO BID tablet 12/13/16 Pantoprazole [Pantoprazole Sodium*] 20 mg PO BEFORE BREAKFAST tablet 12/13/16 Polyethylene Glycol 3350 [Miralax*] 17 gm PO BID PRN #0 powd.pack 12/13/16 Potassium Chloride ER [Micro-K 10 Meq*] 1 tab PO DAILY #30 tab 12/13/16 buPROPion ER BID [Wellbutrin Sr Bid*] 100 mg PO BID tablet 12/13/16 Inpatient Medications 12/13/16 12:03 Acetaminophen [Tylenol] 650 mg PO Q4H PRN Azelastine HCl Nasal [Astelin Nasal [place]] 137 mcg NASAL BID PRN Bisacodyl [Dulcolax] 10 mg RECTAL Q12H PRN LORazepam [Ativan] 0.5 mg PO Q6H PRN Mag-Al Plus Xs Susp [Maalox Liquid] 10 ml PO QID PRN Polyethylene Glycol 3350 [miraLAX] 17 gm PO BID PRN 12/13/16 15:00 Saline Nasal Gel [[place] Saline Nasal Gel] 1 applic TOPICAL TID 12/13/16 21:00 Docusate Sodium [Colace] 100 mg PO BID Oxybutynin Chloride [Ditropan] 5 mg PO BID buPROPion ER BID [Wellbutrin Sr Bid] 100 mg PO BID 12/14/16 00:20 Sotalol HCl [Betapace AF] 40 mg PO BID 12/14/16 06:30 Pantoprazole [Protonix] 20 mg PO BEFORE BREAKFAST 12/14/16 09:00 Cholecalciferol [Vitamin D3] 400 unit PO DAILY Fluoxetine HCl [Prozac] 20 mg PO DAILY Sennosides [Senna-Lax] 8.6 mg PO DAILY aspirin EC [Ecotrin 81 mg] 81 mg PO DAILY 12/17/16 09:00 Non-Formulary Medication 0.5 PO DAILY Procedures and tests throughout hospitalization: Completed Lab Orders 12/14/16 05:00 BASIC METABOLIC PANEL [CHEM] AMDRAW CBC AUTO DIF, MDIF/RMOR IF IND [HEM] AMDRAW 12/15/16 05:55 BASIC METABOLIC PANEL [CHEM] AMDRAW 12/16/16 05:00 BASIC METABOLIC PANEL [CHEM] AMDRAW HEMATOCRIT [HEM] AMDRAW HEMOGLOBIN [HEM] AMDRAW 12/16/16 07:30 CORTISOL [CHEM] Routine 12/16/16 08:00 CORTISOL [CHEM] Routine 12/19/16 11:08 urinalysis [UA W/ MICRO -CULTURE IF IND] [URINE] 12/20/16 06:04 FERRITIN [CHEM] Routine IRON PANEL [CHEM] Routine 12/20/16 06:05 BMP [BASIC METABOLIC PANEL] [CHEM] AMDRAW CBC AUTO DIF, MDIF/RMOR IF IND [HEM] AMDRAW Completed Microbiology Orders 12/16/16 07:45 Hemoccult [OCCULT BLOOD (1-3 SAMPLES)] [RM] 12/18/16 09:17 OCCULT BLOOD (1-3 SAMPLES) [RM] OCCULT Pending Orders 12/13/16 12:00 Admit: Swing Bed Routine Activity: Ambulate with Assist TID Cleanse minor skin tears w/NS PRN Cover minor skin tears with PRN Obtain weight Q7D Resuscitation Status Routine Titrate Oxygen TITRATE B/W 90-95% Vital Signs DAILY Wharf Helper Consult [CM] Routine Nutrition/Dietary Consult [CONS] Routine 12/13/16 12:02 Occupation Therapy Eval and Treat [OT] Routine 12/13/16 12:03 Acetaminophen [Tylenol] 650 mg PO Q4H PRN Azelastine HCl Nasal [Astelin Nasal [place]] 137 mcg NASAL BID PRN Bisacodyl [Dulcolax] 10 mg RECTAL Q12H PRN LORazepam [Ativan] 0.5 mg PO Q6H PRN Mag-Al Plus Xs Susp [Maalox Liquid] 10 ml PO QID PRN Polyethylene Glycol 3350 [miraLAX] 17 gm PO BID PRN 12/13/16 12:06 SCD's [Sequential Compression Device] WHILE IN BED 12/13/16 12:51 Physical Therapy Plan of Care [PT] Routine 12/13/16 15:00 Saline Nasal Gel [[place] Saline Nasal Gel] 1 applic TOPICAL TID 12/13/16 15:04 Occupational Therapy Plan of Care [OT] Routine 12/13/16 21:00 Docusate Sodium [Colace] 100 mg PO BID Oxybutynin Chloride [Ditropan] 5 mg PO BID buPROPion ER BID [Wellbutrin Sr Bid] 100 mg PO BID 12/13/16 Dinner Regular [DIET] 12/14/16 00:20 Sotalol HCl [Betapace AF] 40 mg PO BID 12/14/16 06:30 Pantoprazole [Protonix] 20 mg PO BEFORE BREAKFAST 12/14/16 09:00 Cholecalciferol [Vitamin D3] 400 unit PO DAILY Fluoxetine HCl [Prozac] 20 mg PO DAILY Sennosides [Senna-Lax] 8.6 mg PO DAILY aspirin EC [Ecotrin 81 mg] 81 mg PO DAILY 12/15/16 07:34 Miscellaneous Care Order . 12/15/16 18:00 NPO with Water .AFTER DINNER 12/16/16 06:25 ADRENOCORTICOTROPIC HORMONE [SEND] Routine ALDOSTERONE [SEND] Routine CORTISOL [CHEM] Routine RENIN ACTIVITY [SEND] Routine 12/17/16 09:00 Non-Formulary Medication 0.5 PO DAILY 12/18/16 18:00 OCCULT BLOOD (1-3 SAMPLES) [RM] 12/19/16 11:08 URINE CULTURE [RM] Routine 12/20/16 07:38 METHYLMALONIC ACID, QUANT [SEND] Routine 12/20/16 07:39 RETIC COUNT [RETICULOCYTE] [SEND] Routine 12/20/16 09:14 VITAMIN B12 [CHEM] Routine 12/20/16 10:15 Ensure Plus Supplement BID Labs on day of discharge: Labs from last 24 hours 12/20/16 12/20/16 12/20/16 09:14 07:38 06:05 WBC 6.6 RBC 3.23 L Hgb 9.9 L Hct 30.3 L MCV 93.7 MCH 30.7 MCHC 32.7 RDW 14.0 Plt Count 282 MPV 6.7 L Neutrophils % 65.9 Lymphocytes % 19.8 L Eosinophils % 3.8 Basophils % 0.6 Neutrophils # 4.3 Lymphocytes # 1.3 Monocytes 9.9 Monocytes # 0.7 Eosinophils # 0.3 Basophils # 0.0 Sodium 136 L Potassium 4.0 Chloride 101 Carbon Dioxide 30 BUN 16 Creatinine 0.7 GFR Calculation Not Reportable Glucose 91 Calcium 8.4 Iron TIBC Transferrin Transferrin % Sat Ferritin Vitamin B12 Pending Methylmalonic Acid Pending 12/20/16 12/20/16 06:04 06:04 WBC RBC Hgb Hct MCV MCH MCHC RDW Plt Count MPV Neutrophils % Lymphocytes % Eosinophils % Basophils % Neutrophils # Lymphocytes # Monocytes Monocytes # Eosinophils # Basophils # Sodium Potassium Chloride Carbon Dioxide BUN Creatinine GFR Calculation Glucose Calcium Iron 40 TIBC Cancelled 209 L Transferrin 140 L Transferrin % Sat 19 Ferritin 79 Vitamin B12 Methylmalonic Acid Preliminary micro results at discharge 12/19/16 11:08 Urine Culture - Preliminary Urine,Clean Catch IM: Discharge Physical Exam - I&O/Vital Signs I&O: Intake & Output 12/19/16 12/20/16 12/20/16 21:59 05:59 13:59 Intake Total 720 0 Output Total 100 Balance 720 -100 Intake: IV 0 Left Antecubital 0 Oral 720 0 Output: Urine 100 Other: Urine Appearance Clear Clear Urine Color Yellow Yellow Voiding Method Incontinent Bedside Commode Toilet # Voids 3 Vital Signs: Last Vital Signs Temp 36.9 C 12/20/16 06:35 Pulse 66 12/20/16 06:35 Resp 18 12/20/16 08:31 BP 120/59 12/20/16 06:35 Pulse Ox 90 12/20/16 08:31 Oxygen Flow Rate 1 Oxygen Delivery Method Room Air - Constitutional General appearance: Present: thin - Head Head exam: Absent: atraumatic - Eye Eye exam: Present: EOMI Pupils: Present: PERRL - ENT ENT exam: Present: mucous membranes moist - Neck Neck exam: Absent: tenderness - Respiratory Respiratory exam: Present: decreased breath sounds, clear. Absent: chest wall tenderness - Cardiovascular Cardiovascular exam: Present: RRR, systolic murmur. Absent: S3 - GI/Abdominal GI/Abdominal exam: Present: normal bowel sounds, soft. Absent: organomegaly, tenderness - External exam: Present: other (Platt catheter in place) - Extremities Exam Extremities exam: Absent: edema, tenderness - Neurological Exam Neurological exam: Present: alert - Psychiatric Psychiatric exam: Present: flat affect. Absent: anxious, depressed - Skin Skin exam: Absent: rash - Allied Health Notes Allied health notes reviewed: nursing, PT, social work
[2016-12-20 14:53] LABS: ADRENOCORTICOTROPIC HORMONE SEE COMMENTS (()); ALDOSTERONE SEE COMMENTS (()); RENIN ACTIVITY SEE COMMENTS (())
[2016-12-21] MEDS: PANTOPRAZOLE 40 MG TABLET PO SCH (07:04)
[2016-12-21] MEDS: DOCUSATE SODIUM 100 MG CAPSULE PO SCH (08:07)
[2016-12-21] MEDS: SENNOSIDES 8.6 MG TABLET PO SCH (08:08)
[2016-12-21] MEDS: SOTALOL HCL 80 MG TABLET PO SCH (08:08)
[2016-12-21] MEDS: BUPROPION 100 MG PO SCH (08:08)
[2016-12-21] MEDS: OXYBUTYNIN CHLORIDE 5 MG TABLET PO SCH (08:08)
[2016-12-21] MEDS: FLUOXETINE HCL 20 MG CAPSULE PO SCH (08:08)
[2016-12-21] MEDS: CHOLECALCIFEROL 400 UNIT TABLET PO SCH (08:08)
[2016-12-21] MEDS: FLUDROCORTISONE 0.1 MG PO SCH (08:09)
[2016-12-21] MEDS: SALINE TOPICAL SCH (08:09)
[2016-12-21 12:47] VITALS: BP 120/50; PULSE 74; RESP 22; TEMP 97.9; O2SAT 93
== END 2016-12-21 09:33 | disposition home or self-care (01) | DRG 315 ==
LOC: IN 12:24
PROVIDERS: ADMIT Internal Medicine; ATTEND Internal Medicine
DX: I95.0 Idiopathic hypotension (principal); N39.0 Urinary tract infection, site not specified; G31.09 Other frontotemporal neurocognitive disorder; F02.80 Dementia in other diseases classified elsewhere, unspecified severity, without behavioral disturbance, psychotic disturbance, mood disturbance, and anxiety; I48.2 Chronic atrial fibrillation; R15.9 Full incontinence of feces; R32 Unspecified urinary incontinence; R62.7 Adult failure to thrive; S80.11XD Contusion of right lower leg, subsequent encounter; R26.0 Ataxic gait; D64.9 Anemia, unspecified; F32.9 Major depressive disorder, single episode, unspecified; M54.5 Low back pain; K21.9 Gastro-esophageal reflux disease without esophagitis; R09.02 Hypoxemia; E78.5 Hyperlipidemia, unspecified; M81.0 Age-related osteoporosis without current pathological fracture; K58.9 Irritable bowel syndrome, unspecified; G62.9 Polyneuropathy, unspecified; R68.2 Dry mouth, unspecified; Z79.899 Other long term (current) drug therapy; Z79.82 Long term (current) use of aspirin
CPT/HCPCS: 36415; 80048; 81001; 82024; 82088; 82270; 82533; 82607; 82728; 83540; 83921; 84244; 84466; 85014; 85018; 85025; 85045; 87086; J0834; J7030